=== PATIENT | male | born 1950 | race Caucasian/White ===

== ENCOUNTER 2020-03-13 08:42 | Outpatient (CLI) | payer MEDICARE, SELFPAY ==
[2020-03-13 09:25] LABS: Creatinine Urine 117.73 mg/dL (40-278); MALB Creatinine Ratio 16.5 mg/g (0-30); Microalbumin Urine Random 19.5 mg/L
[2020-03-13 09:26] LABS: Hemoglobin A1C 7.2 % (<5.7)
[2020-03-13 09:48] LABS: Alanine Aminotransferase 30 U/L (16-63); Albumin Level 4.1 g/dL (3.4-5.0); Alkaline Phosphatase 38 U/L (46-116); Anion Gap 9 mmol/L (8-16); Aspartate Amino Transferase 12 U/L (15-37); Bilirubin,Total 0.3 mg/dL (0.00-1.00); Blood Urea Nitrogen 17 mg/dL (7-18); Carbon Dioxide 26 mmol/L (21-32); Chloride 102 mmol/L (98-108); Cholesterol 166 mg/dL (0-200); Estimated Glomerular Filt Rate > 60; Glucose 144 mg/dL (70-99); HDL Direct 45 mg/dL (40-60); LDL Cholesterol Calculated 74 mg/dL (<130); Osmolality Calculated 288 mOsm/kg (285-295); Potassium 4.5 mmol/L (3.5-5.1); Sodium 137 mmol/L (136-145); Total Protein 7.3 g/dL (6.4-8.2); Triglycerides 233 mg/dL (0-150)
[2020-03-17 18:07] LABS: PSA, Free 0.76 ng/mL; PSA, Total 3.2 ng/mL (<=4.0); Percent Free Prostate Spec Ag 24 % (>25)
== END 2020-03-13 08:43 | disposition home or self-care (01) ==
PROVIDERS: PCP Family Medicine; Visit Provider Family Medicine
DX: E11.9 Type 2 diabetes mellitus without complications (principal); Z80.42 Family history of malignant neoplasm of prostate
CPT/HCPCS: 36415; 80053; 80061; 82043; 83036; 84153; 84154; G0103

== ENCOUNTER 2020-05-05 08:27 | Outpatient (CLI) | payer SELFPAY | END 2020-05-05 08:28 | disposition home or self-care (01) | PROVIDERS: PCP Family Medicine; Visit Provider Nurse Practitioner Family | DX: E11.9 Type 2 diabetes mellitus without complications (principal) | CPT/HCPCS: 99199 ==

== ENCOUNTER 2020-07-14 10:38 | Outpatient (CLI) | payer MEDICARE, SELFPAY ==
[2020-07-14 11:09] LABS: Hemoglobin A1C 6.4 % (<5.7)
== END 2020-07-14 10:39 | disposition home or self-care (01) ==
LOC: CHSLAB 10:39
PROVIDERS: PCP Family Medicine; Visit Provider Family Medicine
DX: E11.9 Type 2 diabetes mellitus without complications (principal)
CPT/HCPCS: 36415; 83036

== ENCOUNTER 2021-05-11 10:25 | Outpatient (CLI) | payer MEDICARE, OTHER, SELFPAY ==
[2021-05-11 10:55] LABS: Creatinine Urine 44.88 mg/dL (40-278); MALB Creatinine Ratio 28.9 mg/g (0-30); Microalbumin Urine Random < 13.0 mg/L
[2021-05-11 10:59] LABS: Hemoglobin A1C 7.1 % (<5.7)
[2021-05-11 11:19] LABS: Alanine Aminotransferase 29 U/L (16-63); Alkaline Phosphatase 40 U/L (46-116); Anion Gap 9 mmol/L (8-16); Aspartate Amino Transferase 14 U/L (15-37); Bilirubin,Total 0.3 mg/dL (0.00-1.00); Blood Urea Nitrogen 18 mg/dL (7-18); Carbon Dioxide 28 mmol/L (21-32); Chloride 99 mmol/L (98-108); Cholesterol 161 mg/dL (0-200); Estimated Glomerular Filt Rate > 60; Glucose 206 mg/dL (70-99); HDL Direct 45 mg/dL (40-60); LDL Cholesterol Calculated 79 mg/dL (<130); Osmolality Calculated 289 mOsm/kg (285-295); Potassium 4.4 mmol/L (3.5-5.1); Sodium 136 mmol/L (136-145); Total Protein 7.2 g/dL (6.4-8.2); Triglycerides 185 mg/dL (0-150)
[2021-05-11 11:22] LABS: Hematocrit 43.8 % (37.0-46.0); Hemoglobin 14.3 g/dL (12.4-15.3); Mean Corpuscular HGB Conc 32.6 g/dL (32.0-36.0); Mean Corpuscular Hemoglobin 28.5 pg (27.0-31.0); Mean Corpuscular Volume 87.4 fL (78.0-102.0); Mean Platelet Volume 9.6 fl (8.7-11.0); Platelet Count Result 205 K/mm3 (150-420); Red Blood Count 5.01 M/mm3 (4.70-6.10); White Blood Count 4.7 K/mm3 (4.8-10.8)
[2021-05-14 20:22] LABS: PSA, Free 0.65 ng/mL; PSA, Total 3.3 ng/mL (<=4.0); Percent Free Prostate Spec Ag 20 % (>25)
== END 2021-05-11 10:26 | disposition home or self-care (01) ==
LOC: CHSLAB 10:29
PROVIDERS: PCP Family Medicine; Visit Provider Nurse Practitioner Family
DX: E11.9 Type 2 diabetes mellitus without complications (principal); I10 Essential (primary) hypertension; E78.5 Hyperlipidemia, unspecified; Z80.42 Family history of malignant neoplasm of prostate; R97.20 Elevated prostate specific antigen [PSA]
CPT/HCPCS: 36415; 80053; 80061; 82043; 83036; 84153; 84154; 85027

== ENCOUNTER 2021-05-19 09:53 | Outpatient (CLI) | payer MEDICARE, OTHER, SELFPAY ==
--- NOTE | ~2021-05-19 | DEXA_ITS ---
Bone Density Report Name: RICKY DAS Age: 71 Sex: Male Ethnicity: White Date of : 1950 Indication: height loss; prior fracture; Referring Provider: Ekaterina Faulkner Study: Bone densitometry was performed. Exam Date: May 19, 2021 Accession number: [id number] Bone Density: Region BMD T-score Z-score Classification AP Spine(L1, L2, L4) 1.021 -0.6 0.3 Normal Femoral Neck (Left) 0.727 -1.5 -0.3 Osteopenia Total Hip (Left) 0.700 -2.2 -1.6 Osteopenia Femoral Neck (Right) 0.553 -2.8 -1.6 Osteoporosis Total Hip (Right) 0.654 -2.5 -1.9 Osteoporosis Femoral Neck Mean 0.640 -2.1 -1.0 Osteopenia Total Hip Mean 0.677 -2.4 -1.7 Osteopenia World Health Organization criteria for BMD impression classify patients as: Normal (T-score at or above -1.0), Osteopenia (T-score between -1.0 and -2.5), or Osteoporosis (T-score at or below -2.5). 10-year Fracture Risk: FRAX not reported because: Some T-score for Spine Total or Hip Total or Femoral Neck at or below -2.5 Clinical Information Provided by Patient: Has had a low trauma fracture Has used the following medications: Vitamin D, Calcium Patient maximum height was 72 No regular weight bearing exercise Drinks caffeinated beverages Impression: The patient has established osteoporosis, based on the Right Femoral Neck T-score and the existence of a prior fracture. The patient has risk factors, including: previous fracture. Discussion: HIGH RISK OF FRACTURE. BONE DENSITY IS UNDESIRABLY LOW AT ONE OR MORE SKELETAL SITES, CONSISTENT WITH OSTEOPOROSIS. This patient's lowest T-score, in a patient who has previously fractured, meets the World Health Organization's (WHO) criteria for severe osteoporosis. In untreated patients, the risk of osteoporotic fracture increases approximately two-fold for each 1.0 SD decrease in T-score. Low bone density is not the only risk factor for fracture; also consider factors such as patient's age, frailty or poor health, risk of falling, risk of injury, previous osteoporotic fracture, family history of osteoporosis, cigarette smoking, low body weight, etc. Not everyone with low bone mineral density has osteoporosis; osteomalacia and other metabolic bone disorders should also be considered. Patients who have osteoporosis should be evaluated for specific diseases and conditions (secondary causes) that may cause or contribute to bone loss. The National Osteoporosis Foundation (NOF) recommends pharmacologic intervention for men with BMD at this level (a T-score of -2.5 or below). The patient should follow a healthful lifestyle (good nutrition with adequate calcium and vitamin D, and appropriate weight-bearing exercise). Follow-Up: Consider repeating this study in 2 years to reassess this patient's status, or sooner i
== END 2021-05-19 09:54 | disposition home or self-care (01) ==
LOC: CHSIMG 09:55
PROVIDERS: PCP Family Medicine; Visit Provider Nurse Practitioner Family
DX: M81.0 Age-related osteoporosis without current pathological fracture (principal)
CPT/HCPCS: 77080

== ENCOUNTER 2021-07-07 10:23 | Outpatient (CLI) | payer MEDICARE, OTHER, SELFPAY ==
--- NOTE | ~2021-07-07 | CT_ITS ---
EXAMINATION: CT brain & sinus wo con EXAM DATE: 07/07/2021 11:32 INDICATION: Chronic Sinusitis,Drainage TECHNIQUE: Spiral CT of the head obtained without contrast. Reformatted coronal, sagittal images rev iewed. Spiral CT of the sinuses was acquired in the axial plane. Coronal and sagittal reformatted im ages were also reviewed. The dose-length product (DLP) for this examination was 681.00 mGy-cm. The exposure was tailored according to patient size, and iterative reconstruction (ASIR) was used as harshad tional dose reduction technique. Comparison is made to prior examination from 09/18/2017. FINDINGS: SINUS CT: The sinuses are normally developed. Mild bilateral ethmoid mucoperiosteal thickening. No sinus air-fluid levels. The ostiomeatal units are patent. There is no sinus wall thickening. T here is mild rightward nasal septal deviation. The mastoid air cells and middle ears are well aerate d. External auditory canals are patent. Soft tissue is unremarkable. HEAD CT: Mild cerebral atrophy. There is no acute intraparenchymal hemorrhage. No evidence of intrap arenchymal brain mass lesion. No evidence of acute infarction. There is no mass effect or midline sh ift. There is no obstructive hydrocephalus suspected. There are no extra-axial collections. There a re no calvarial acute fractures. IMPRESSION: 1. Mild ethmoid mucoperiosteal thickening. No air-fluid levels. 2. Mild cerebral atrophy Reviewed, dictated and finalized at location A. ITAL CARRIER
== END 2021-07-07 10:24 | disposition home or self-care (01) ==
LOC: CHSIMG 10:23
PROVIDERS: PCP Family Medicine; Visit Provider Family Medicine
DX: J32.9 Chronic sinusitis, unspecified (principal)
CPT/HCPCS: 70450; 70486

== ENCOUNTER 2021-07-14 09:47 | Outpatient (CLI) | payer MEDICARE, OTHER, SELFPAY ==
[2021-07-14] MEDS: ZOLEDRONIC ACID 5 MG/100 ML 100 ML 300 MG IVPB (10:00)
[2021-07-14 10:07] VITALS: BP 129/84; PULSE 56; RESP 18; TEMP 36.5
[2021-07-14 10:08] VITALS: BMI 39.1
--- NOTE | 2021-07-14 10:12 | PC.NURSE ---
Patient here for IV Reclast yearly infusion. Education on medication given. No concerns voiced. IV Reclast administered. SEE MAR. Tolerated well. Safe exit of hospital. Will return next year after receiving a new order will call.
== END 2021-07-14 09:48 | disposition home or self-care (01) ==
PROVIDERS: PCP Family Medicine; Visit Provider Family Medicine
DX: M81.0 Age-related osteoporosis without current pathological fracture (principal)
CPT/HCPCS: 96365; 96374; J3489

== ENCOUNTER 2022-08-11 09:00 | Outpatient (CLI) | payer MEDICARE, OTHER, SELFPAY ==
[2022-08-11 09:34] LABS: Hemoglobin A1C 6.1 % (<5.7)
[2022-08-11 09:56] LABS: Alanine Aminotransferase 27 U/L (16-63); Albumin Level 4.1 g/dL (3.4-5.0); Alkaline Phosphatase 31 U/L (46-116); Anion Gap 7 mmol/L (8-16); Aspartate Amino Transferase 17 U/L (15-37); Bilirubin,Total 0.3 mg/dL (0.00-1.00); Blood Urea Nitrogen 14 mg/dL (7-18); Calcium 9.4 mg/dL (8.5-10.1); Carbon Dioxide 28 mmol/L (21-32); Chloride 102 mmol/L (98-108); Cholesterol 134 mg/dL (0-200); Estimated Glomerular Filt Rate > 60; Glucose 105 mg/dL (70-99); HDL Direct 50 mg/dL (40-60); LDL Cholesterol Calculated 54 mg/dL (<130); Osmolality Calculated 284 mOsm/kg (285-295); Potassium 4.5 mmol/L (3.5-5.1); Prostate Specific Antigen 4.7 ng/mL (< OR = 4.0); Sodium 137 mmol/L (136-145); Total Protein 7.2 g/dL (6.4-8.2); Triglycerides 149 mg/dL (0-150)
[2022-08-11 10:10] LABS: Creatinine Urine < 13.00 mg/dL (40-278); Microalbumin Urine Random < 13.0 mg/L
== END 2022-08-11 09:01 | disposition home or self-care (01) ==
LOC: CHSLAB 09:02
PROVIDERS: PCP Family Medicine; Visit Provider Family Medicine
DX: Z12.5 Encounter for screening for malignant neoplasm of prostate (principal); E11.9 Type 2 diabetes mellitus without complications
CPT/HCPCS: 36415; 80053; 80061; 82043; 83036; 84153; G0103

== ENCOUNTER 2022-09-23 08:50 | Outpatient (CLI) | payer MEDICARE, OTHER, SELFPAY ==
[2022-09-23 10:03] LABS: Prostate Specific Antigen 5.9 ng/mL (< OR = 4.0)
== END 2022-09-23 08:51 | disposition home or self-care (01) ==
LOC: CHSLAB 08:53
PROVIDERS: PCP Family Medicine; Visit Provider Family Medicine
DX: R97.20 Elevated prostate specific antigen [PSA] (principal)
CPT/HCPCS: 36415; 84153

== ENCOUNTER 2022-10-18 10:52 | Outpatient (CLI) | payer MEDICARE, OTHER, SELFPAY ==
--- NOTE | ~2022-10-18 | XR_ITS ---
XR lumbar spine 2-3V 10/18/2022 11:14 Indication: Acute low back pain Procedure: 3 views lumbar spine Comparison: No prior studies for comparison. Findings: Vertebral body heights are maintained. There is disc narrowing at L3-4, L4-5 and L5-S1. Kassidy tebral body heights are maintained. There is moderate lower lumbar there is atherosclerosis. Facet hy pertrophy. No acute fracture or traumatic malalignment. Impression: 1: Severe lumbar spondylosis. Reviewed, dictated and finalized at location L. Impression: 1: Severe lumbar spondylosis.
== END 2022-10-18 10:53 | disposition home or self-care (01) ==
LOC: CHSIMG 10:55
PROVIDERS: PCP Family Medicine; Visit Provider Family Medicine
DX: M54.40 Lumbago with sciatica, unspecified side (principal); M47.816 Spondylosis without myelopathy or radiculopathy, lumbar region
CPT/HCPCS: 72100

== ENCOUNTER 2022-10-23 11:50 | Emergency (ER) | payer MEDICARE, OTHER, SELFPAY ==
--- NOTE | ~2022-10-23 | XR_ITS ---
XR chest 1V portable DATE: 10/23/2022 12:33 INDICATION: Near syncope. Vomiting. TECHNIQUE: Portable AP chest on 10/23/2022 at 1230 hours COMPARISON: 01/15/2018 two-view chest FINDINGS: Heart size appears normal. No hilar or mediastinal enlargement. Mild atelectasis in the lower lung zones. No pleural effusion or pulmonary vascular congestion or pne umothorax is detected. IMPRESSION: Mild atelectasis in the lower lung zones Reviewed, dictated and finalized at location A.
[2022-10-23 11:56] VITALS: BP 156/128; PULSE 79; RESP 20; TEMP 36.5; O2SAT 99
--- NOTE | 2022-10-23 12:12 | ECG_ITS ---
Measurements Intervals [place] Rate: 77 P: 40 W[place]: 205 QRS: -17 QRSD: 94 T: 21 QT: 376 QTc: 427 Interpretive Statements SINUS RHYTHM NORMAL ECG NO PREVIOUS ECG AVAILABLE FOR COMPARISON Electronically Signed On 10-24-2022 10:43:46 CDT by Job Snider M.D.
[2022-10-23 12:18] VITALS: BP 115/95; PULSE 80; RESP 22; O2SAT 100
[2022-10-23] MEDS: LORazepam INJ (*CRX) 2 MG/ML VIAL 1 MG IV PUSH (12:20)
[2022-10-23 12:21] VITALS: PULSE 81
--- NOTE | 2022-10-23 12:29 | ED.GENADULT ---
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 He felt dizzy felt palpitations were little fast he said he had a sensation of motion vertigo the lasted for couple minutes. EMS stated he was hyperventilating and tearful when they got to his side in the bathroom. And when the EMS distracted him with cis talked about fire fighting patient calmed down. Blood pressure at the scene was 126/76 first-degree AV block at a rate 84 unremarkable 12 lead respirations were 18 O2 sat on room air was 98% denies any pain his blood sugar was 94 he had 1 emesis he was given 4 of Zofran IV. Patient had just been outside in the heat and came in the house to the bathroom he felt like he had to have a bowel movement as he was having some cramping lower abdominal pain. Denies any problems walking talking or seeing or new problems hearing rash or itching lumps or bumps or swelling bleeding or bruising. Denies any problems eating or drinking or voiding. Denies any cough sore shortness of breath sore throat runny nose or fever he has not been sick recently and denies any pain. EMS stated he had awoke not feeling well today but when asked patient said he woke up fine. Most recently he has had some right lower extremity pain from sciatica and is taking OxyContin this. He has had 2 strokes has problems with his memory which his primary care provider thinks is secondary to old age and he has tremor when he gets nervous or does not feel well. He has a history of anxiety and depression and diabetes. History of hypertension heart disease lung disease kidney liver disease anemia thyroid problems. thought he was having a panic attack like he has every 2 weeks. Past surgeries appendectomy bilateral knee surgeries allergies Flexeril atorvastatin Related Data Home Medications Medication Instructions Recorded Confirmed aspirin 81 mg tablet,delayed 81 mg PO DAILY 05/14/19 08/26/22 release (Adult Low Dose Aspirin) calcium citrate 315 mg-vitamin D3 2 tablet PO DAILY 05/06/21 08/26/22 5 mcg (200 unit) tablet multivitamin (Multiple Vitamins 1 tablet PO DAILY 05/06/21 08/26/22 tablet) Allergies Allergy/AdvReac Type Severity Reaction Status Date / Time cyclobenzaprine Allergy Unknown Unknown Verified 10/18/22 08:00 atorvastatin AdvReac Mild Joint Pain Verified 10/18/22 08:00 bupropion AdvReac Mild tremors Verified 10/18/22 08:00 Review of Systems Review of Systems: All systems reviewed & are unremarkable except as noted in HPI and below PMFSH Past Medical History Medical History Age related osteoporosis DM2 (diabetes mellitus, type 2) Elevated blood pressure reading without diagnosis of hypertension MICHEAL (generalized anxiety disorder) GERD (gastroesophageal reflux disease) History of TIA (transient ischemic attack) Hyperlipidemia NERI (obstructive sleep apnea) Uses CPAP Overweight Surgical History Surgical History H/O vein stripping History of facial surgery History of knee replacement Right & Left Hx of appendectomy Family History Family History Father Malignant neoplasm of prostate Family history of malignant neoplasm of brain Mother Cancer Social History Social History Smoking status: Current some day smoker (2 cigars a week) Tobacco type: cigars Alcohol intake: former Substance use: never Substance use type: does not use Living arrangements: with family Additional living arrange
[2022-10-23 12:46] VITALS: BP 111/96; PULSE 74; RESP 20; O2SAT 95
[2022-10-23 13:10] LABS: Hematocrit 39.7 % (37.0-46.0); Hemoglobin 13.3 g/dL (12.4-15.3); Mean Corpuscular HGB Conc 33.5 g/dL (32.0-36.0); Mean Corpuscular Hemoglobin 29.1 pg (27.0-31.0); Mean Corpuscular Volume 86.9 fL (78.0-102.0); Mean Platelet Volume 9.6 fl (8.7-11.0); Platelet Count Result 191 K/mm3 (150-420); Red Blood Count 4.57 M/mm3 (4.70-6.10); Red Cell Distribution Width 11.9 % (11.6-14.4); White Blood Count 8.1 K/mm3 (4.8-10.8)
[2022-10-23 13:25] LABS: INR 0.9; Partial Thromboplastin Time 25.2 SEC (23.90-30.70); Prothrombin Time 10.3 Seconds (9.50-12.10)
[2022-10-23 13:31] LABS: Alanine Aminotransferase 19 U/L (16-63); Albumin Level 3.6 g/dL (3.4-5.0); Alkaline Phosphatase 32 U/L (46-116); Anion Gap 10 mmol/L (8-16); Aspartate Amino Transferase 14 U/L (15-37); Bilirubin,Total 0.4 mg/dL (0.00-1.00); Blood Urea Nitrogen 20 mg/dL (7-18); Calcium 9.2 mg/dL (8.5-10.1); Carbon Dioxide 25 mmol/L (21-32); Chloride 102 mmol/L (98-108); Estimated CRCL calculation 85 ml/min; Estimated Glomerular Filt Rate > 60; Glucose 101 mg/dL (70-99); Lactic Acid Reflex 2.5 mmol/L (0.4-2.0); Magnesium 1.6 mg/dL (1.8-2.4); Osmolality Calculated 286 mOsm/kg (285-295); Potassium 4.3 mmol/L (3.5-5.1); Sodium 137 mmol/L (136-145); Total Protein 6.9 g/dL (6.4-8.2); Troponin I 8.5 ng/L (0.00-60.4)
[2022-10-23 15:00] LABS: Appearance Urine Clear (Clear); Bilirubin Urine Negative (Negative); Blood Urine Negative (Negative); Color Urine Yellow (Yellow); Glucose Urine UA Negative (Negative); Ketones Urine Negative (Negative); Leukocyte Esterase Ur Negative LEU/UL (Negative); Nitrate Urine Negative (Negative); Protein Urine Negative (Negative); Urobilinogen Urine 0.2 mg/dL (0.2-1.0)
[2022-10-23 15:02] LABS: Add Urine Microscopic? NO
[2022-10-23 15:54] VITALS: BP 111/96; PULSE 88; RESP 20; TEMP 36.3
[2022-10-23] MEDS: MAGNESIUM OXIDE 400 MG TABLET PO (15:59)
[2022-10-23 16:07] LABS: Reflex Lactic Acid Yes or No Add Lactic
[2022-10-23 16:43] VITALS: BP 113/90; PULSE 86; RESP 20; O2SAT 96
[2022-10-23 16:55] LABS: Lactic Acid 1.2 mmol/L (0.4-2.0)
== END 2022-10-23 16:45 | disposition home or self-care (01) ==
PROVIDERS: Emergency Provider Emergency Medicine; PCP Family Medicine
DX: E83.42 Hypomagnesemia (principal); F41.0 Panic disorder [episodic paroxysmal anxiety]; F41.9 Anxiety disorder, unspecified; F32.A Depression, unspecified; E11.9 Type 2 diabetes mellitus without complications; E78.5 Hyperlipidemia, unspecified; F17.290 Nicotine dependence, other tobacco product, uncomplicated; Z86.73 Personal history of transient ischemic attack (TIA), and cerebral infarction without residual deficits; Z79.82 Long term (current) use of aspirin
CPT/HCPCS: 36415; 71045; 80053; 81003; 83605; 83735; 84484; 85027; 85610; 85730; 93005; 96374; 99284; A9270; J2060

== ENCOUNTER 2022-10-24 08:32 | Outpatient (RCR) | payer MEDICARE, OTHER, SELFPAY ==
--- NOTE | 2022-10-24 09:26 | OPREHPOC ---
Outpatient Therapy Plan of Care This is a Multidisciplinary Plan of Care that may contain components documented by all disciplines (PT, OT, and ST.) PT Problem 1 PT Problem #1 Knowledge Deficit PT Goal 1 Goal Patient to demonstrate independence with HEP Target Visit 12 PT Problem 2 PT Problem #2 Pain PT Goal 1 Goal Patient to demonstrate highest pain of 2/10 with house hold tasks Target Visit 12 PT Problem 3 PT Problem #3 Impaired Flexibility PT Goal 1 Goal Patient to demonstrate B HS flexibility to 20 deg to improve ability to stand for prolonged periods PT Problem 4 PT Problem #4 Impaired Strength PT Goal 1 Goal Patient to demonstrate 5/5 strength of B LE in order to return to house hold chores at PLOF Target Visit 12
--- NOTE | 2022-10-24 09:26 | PTOPEVAL1 ---
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 He denies back pain currently but states pain goes down posterior leg. He reports years ago he broke his R ischium. He reports pain is worse with standing but comes and goes as well. Ice and heat help as well as laying his leg flat. He is retired but continues to do house and yard work. Reported Pain Level Pain Score 3,0: Self Report Assessment PT Clinical Summary Patient is a 72 year old male who presents to PT with lumbar radiculopathy to the R LE. He demonstrates impaired posture, decreased B hip strength and decreased B LE flexibility limting his ability to stand for long periods of time for house hold tasks, carry and lift. He would benefit from skilled PT to address impairments and return to PLOF. Plan of Care Interventions Electrical Stimulation,Gait Training,Hot Pack/Cold Pack,Manual Therapy,Mechanical Traction,Neuro Re- education,Therapeutic Activities,Therapeutic Exercise PT Services Indicated Yes Treatment Frequency and 2x weekly for 12 visits Duration These treatments will address the objective and functional deficits as defined above. The patient will be advanced safely and appropriately in order for the patient to progress towards his/her prior level of function. Additional exercises will be introduced and as well as a comprehensive home exercise program upon discharge, if needed, ?to ensure carryover of functional gains achieved in the clinic. This treatment plan has been reviewed and agreement upon by the patient.
--- NOTE | 2022-11-30 11:18 | PTOPDC ---
Assessment and note entered by JT File, PT Evaluation Information Assessment Status Discharge Diagnosis low back pain with radiating pain to R LE Onset 10/18/22 Subjective Information patient reports he feels great today. he reports he has no more back pain, and no more pain down the R LE. he reports he is ready to DC therapy today. Reported Pain Level Pain Score 0,0: Self Report Assessment PT Clinical Summary mr. [email or web address] presents to skilled PT services for his 10th skilled therapy visit today. as of this date, he has met all goals for skilled PT, and is managing symptoms and exercises independent at home. he will DC skilled PT today and continue with HEP independent at home. Plan of Care PT Services Indicated Yes
--- NOTE | 2022-11-30 13:40 | OPREHPOC ---
Outpatient Therapy Plan of Care This is a Multidisciplinary Plan of Care that may contain components documented by all disciplines (PT, OT, and ST.) PT Problem 1 PT Problem #1 Knowledge Deficit PT Goal 1 Goal Patient to demonstrate independence with HEP Target Visit 12 Progress Met PT Problem 2 PT Problem #2 Pain PT Goal 1 Goal Patient to demonstrate highest pain of 2/10 with house hold tasks Target Visit 12 Progress Met PT Problem 3 PT Problem #3 Impaired Flexibility PT Goal 1 Goal Patient to demonstrate B HS flexibility to 20 deg to improve ability to stand for prolonged periods Progress Partially Met Comment met for the R LE PT Problem 4 PT Problem #4 Impaired Strength PT Goal 1 Goal Patient to demonstrate 5/5 strength of B LE in order to return to house hold chores at PLOF Target Visit 12 Progress Met
== END 2022-11-30 11:27 | disposition home or self-care (01) ==
LOC: CHSPT 08:32
PROVIDERS: PCP Family Medicine; Visit Provider Family Medicine
DX: M54.30 Sciatica, unspecified side (principal)
CPT/HCPCS: 97014; 97110; 97140; 97161; G0283

== ENCOUNTER 2022-12-19 07:55 | Outpatient (CLI) | payer MEDICARE, SELFPAY ==
[2022-12-19 08:45] LABS: Basophils Absolute Auto 0.03 K/mm3 (0.00-0.10); Basophils Percent Auto 0.6 % (0.0-1.0); Eosinophils Absolute Auto 0.14 K/mm3 (0.02-0.50); Eosinophils Percent Auto 2.9 % (1.0-6.0); Hematocrit 39.8 % (37.0-46.0); Hemoglobin 13.2 g/dL (12.4-15.3); Immature Granulocyte Absolute 0.01 K/mm3 (0.00-0.00); Immature Granulocyte Percent A 0.2 % (0.0-0.0); Lymphocytes Absolute Auto 1.48 K/mm3 (1.10-4.50); Lymphocytes Percent Auto 30.3 % (18.0-42.0); Mean Corpuscular HGB Conc 33.2 g/dL (32.0-36.0); Mean Corpuscular Hemoglobin 29.5 pg (27.0-31.0); Mean Corpuscular Volume 88.8 fL (78.0-102.0); Mean Platelet Volume 9.8 fl (8.7-11.0); Monocytes Absolute Auto 0.31 K/mm3 (0.10-0.90); Monocytes Percent Auto 6.4 % (2.0-11.0); Neutrophils Absolute Auto 2.9 K/mm3 (1.7-7.2); Neutrophils Percent Auto 59.6 % (50.0-70.0); Platelet Count Result 218 K/mm3 (150-420); Red Blood Count 4.48 M/mm3 (4.70-6.10); Red Cell Distribution Width 12.1 % (11.6-14.4); White Blood Count 4.9 K/mm3 (4.8-10.8)
[2022-12-19 09:13] LABS: Alanine Aminotransferase 16 U/L (16-63); Albumin Level 3.7 g/dL (3.4-5.0); Alkaline Phosphatase 29 U/L (46-116); Anion Gap 7 mmol/L (8-16); Aspartate Amino Transferase 15 U/L (15-37); Bilirubin,Total 0.4 mg/dL (0.00-1.00); Blood Urea Nitrogen 19 mg/dL (7-18); Carbon Dioxide 26 mmol/L (21-32); Chloride 104 mmol/L (98-108); Estimated Glomerular Filt Rate > 60; Glucose 105 mg/dL (70-99); Magnesium 1.9 mg/dL (1.8-2.4); Osmolality Calculated 286 mOsm/kg (285-295); Potassium 4.8 mmol/L (3.5-5.1); Sodium 137 mmol/L (136-145); Total Protein 7.1 g/dL (6.4-8.2)
== END 2022-12-19 07:56 | disposition home or self-care (01) ==
LOC: CHSLAB 07:57
PROVIDERS: PCP Family Medicine; Visit Provider Family Medicine
DX: R03.0 Elevated blood-pressure reading, without diagnosis of hypertension (principal)
CPT/HCPCS: 36415; 80053; 83735; 85025

== ENCOUNTER 2023-05-03 09:17 | Outpatient (CLI) | payer MEDICARE, SELFPAY ==
[2023-05-03 10:39] LABS: Prostate Specific Antigen 6.6 ng/mL (< OR = 4.0)
== END 2023-05-03 09:18 | disposition home or self-care (01) ==
LOC: CHSLAB 09:19
PROVIDERS: PCP Family Medicine; Visit Provider Urology
DX: C61 Malignant neoplasm of prostate (principal)
CPT/HCPCS: 36415; 84153

== ENCOUNTER 2023-08-01 08:53 | Outpatient (CLI) | payer MEDICARE, SELFPAY ==
[2023-08-01 10:15] LABS: Prostate Specific Antigen 6.6 ng/mL (< OR = 4.0)
== END 2023-08-01 08:54 | disposition home or self-care (01) ==
LOC: CHSLAB 08:55
PROVIDERS: PCP Family Medicine; Visit Provider Urology
DX: C61 Malignant neoplasm of prostate (principal)
CPT/HCPCS: 36415; 84153

== ENCOUNTER 2023-08-29 07:56 | Outpatient (CLI) | payer MEDICARE, OTHER, SELFPAY ==
--- NOTE | ~2023-08-29 | DEXA_ITS ---
? Bone Density Report? Name:? RICKY DAS Patient ID:??? [id number] Age:? 73 Sex:? Male Ethnicity:? White Date of : 1950 Indication: screening for osteoporosis; height loss; prior fracture; Referring Provider: NICKY WILSON Study: Bone densitometry was performed. Exam Date: August 29, 2023 Accession number: [id number] Bone Density: Region? BMD??? T-score? Z-score?? Classification AP Spine(L1, L2, L4)? 0.977?? -1.0? -0.1? Normal Femoral Neck (Left)? 0.686?? -1.8? -0.6? Osteopenia Total Hip (Left)? 0.697?? -2.2? -1.5? Osteopenia Femoral Neck (Right)? 0.601?? -2.4? -1.2? Osteopenia Total Hip (Right)? 0.678?? -2.4? -1.7? Osteopenia Femoral Neck Mean? 0.644?? -2.1? -0.9? Osteopenia Total Hip Mean? 0.687?? -2.3? -1.6? Osteopenia World Health Organization criteria for BMD impression classify patients as: Normal (T-score at or above -1.0), Osteopenia (T-score between -1.0 and -2.5), or Osteoporosis (T-score at or below -2.5). 10-year Fracture Risk(1): Major Osteoporotic Fracture? 13% Hip Fracture? 3.9% Reported Risk Factors: [place] (), Neck BMD=0.601, BMI=39.5, previous fracture Input outside FRAX? limits. Adjusted to:Sziswh=930 kg (1) FRAX? Version 3.08. Fracture probability calculated for an untreated patient. Fracture probability may be lower if the patient has received treatment. Clinical Information Provided by Patient: Has had a low trauma fracture Has used the following medications: Vitamin D, Calcium Patient maximum height was 72 No regular weight bearing exercise Drinks caffeinated beverages Impression: The patient has low bone mass, based on the Right Total Hip T-score. The patient has risk factors, including: previous fracture. Discussion: BONE DENSITY IS LOW AT ONE OR MORE SKELETAL SITES. This patient's lowest T-score is low at one or more skeletal sites.? It meets the World Health Organization's (WHO) criteria for ?low bone mass?? (T-score between -1.0 and -2.5).? The patient's 10-year risk of fracture as calculated by FRAX is less than the threshold where pharmacological therapy is recommended by the National Osteoporosis Foundation (NOF).? However, all treatment decisions require clinical judgment and consideration of individual patient factors, including patient preferences, comorbidities, previous drug use, risk factors not captured in the FRAX model (e.g., frailty, falls, vitamin D deficiency, increased bone turnover, interval significant decline in bone density) and possible under or overestimation of fracture risk by FRAX. The patient should follow a healthful lifestyle (good nutrition with adequate calcium and vitamin D, and appropriate weight-bearing exercise). Follow-Up: Consider repeating this study in 2 to 3 years to reassess this patient's status, or sooner if there is some new clinical indication. Reported by: Dr. Emmanuel Gonzalez on 08/29/19
== END 2023-08-29 07:57 | disposition home or self-care (01) ==
LOC: CHSIMG 07:57
PROVIDERS: PCP Nurse Practitioner Family; Visit Provider Nurse Practitioner Family
DX: M81.8 Other osteoporosis without current pathological fracture (principal); M85.89 Other specified disorders of bone density and structure, multiple sites
CPT/HCPCS: 77080

== ENCOUNTER 2023-09-30 14:30 | Emergency (ER) | payer MEDICARE, OTHER, SELFPAY ==
[2023-09-30 14:30] VITALS: BP 151/97; PULSE 81; RESP 16; TEMP 36.4; O2SAT 97
--- NOTE | 2023-09-30 14:46 | ED.GENADULT ---
HPI - General Adult General Chief complaint: Wound/Laceration Stated complaint: laceration to nose Source: patient Mode of arrival: ambulatory Limitations: no limitations History of Present Illness HPI narrative: 73-year-old male history smoking, hypertension, diabetes mellitus, dyslipidemia, GA D, TIA, NERI, BPH presented to the ER with -- 0.5 cm traumatic ulcer in his left nostril which she got while shaving. Profuse bleeding which the patient was not able to control. No other injuries noted. The wound was cauterized with silver nitrate stick following which the bleeding stopped Onset (ago): minute(s) ( 30 minutes ago) Location: face ( left nostril) Relieving factors: none Exacerbating factors: none Related Data Home Medications Medication Instructions Recorded Confirmed aspirin 81 mg tablet,delayed 81 mg PO DAILY 05/14/19 08/21/23 release (Adult Low Dose Aspirin) multivitamin (Multiple Vitamins 1 tablet PO DAILY 05/06/21 08/21/23 tablet) ipratropium bromide 21 mcg (0.03 2 spray intranasal BID 12/16/22 08/21/23 %) nasal spray Allergies Allergy/AdvReac Type Severity Reaction Status Date / Time cyclobenzaprine Allergy Unknown Unknown Verified 08/21/23 10:20 atorvastatin AdvReac Mild Joint Pain Verified 08/21/23 10:20 bupropion AdvReac Mild tremors Verified 08/21/23 10:20 Review of Systems Review of Systems: All systems reviewed & are unremarkable except as noted in HPI and below PMFSH Past Medical History Medical History Age related osteoporosis DM2 (diabetes mellitus, type 2) Elevated blood pressure reading without diagnosis of hypertension MICHEAL (generalized anxiety disorder) GERD (gastroesophageal reflux disease) History of TIA (transient ischemic attack) Hyperlipidemia NERI (obstructive sleep apnea) Inspire implanted device Overweight Surgical History Surgical History H/O vein stripping History of facial surgery History of knee replacement Right & Left Hx of appendectomy Family History Family History Father Malignant neoplasm of prostate Family history of malignant neoplasm of brain Mother Cancer Social History Social History Smoking status: Current some day smoker (2 cigars a week) Tobacco type: cigars Alcohol intake: former Substance use: never Substance use type: does not use Do You Feel Safe in your Home?: Yes Lack of Transportation: No Lack of Food: Never True Current Housing: I Have Housing Concerned About Future Housing: No Difficulty Paying Gas/Electric Bills: No Difficulty Paying for Meds: No Currently Unemployed: No Education: High School Diploma/GED Difficulty w/ Childcare or Family Care: No Living arrangements: with family Additional living arrangements comments: . Lives with . Occupation/Education: retired Additional occupation/education comments: Still an active member of [employer] Gender identity (if verbalized by the patient): Male Exam Narrative: blood pressure is 151/97 Const: General: healthy appearing and no acute distress Nutritional Appearance: obese Orientation/consciousness: patient oriented x3 Limitations: no limitations HENMT: Head: normal to inspection Ears: external ears normal Face/Nose/Sinus: Normal external nose present and Normal nares present ( 0.5 cm traumatic ulcer in the left nostril which is profusely bleeding.) Mouth: Yes Normal oral and palatal mucosa present Throat: posterior oropharynx normal Eyes: Conjunctivae: conjunctivae normal Pupils: Equal, round and reactive pupils present EOM: EOMs intact bilaterally Direct Ophthalmoscopy: no photophobia Neck: Neck: normal visual inspection, no lymphadenopathy and no meningeal signs Chest: Chest palpation & in
[2023-09-30] MEDS: SILVER NITRATE (*SP) STICK 1 EACH TOPICAL (14:53)
== END 2023-09-30 15:26 | disposition home or self-care (01) ==
PROVIDERS: Emergency Provider Internal Medicine Critical Care Medicine; PCP Family Medicine
DX: L98.491 Non-pressure chronic ulcer of skin of other sites limited to breakdown of skin (principal); E11.9 Type 2 diabetes mellitus without complications; E78.5 Hyperlipidemia, unspecified; G47.33 Obstructive sleep apnea (adult) (pediatric); M81.0 Age-related osteoporosis without current pathological fracture; F41.1 Generalized anxiety disorder; Z86.73 Personal history of transient ischemic attack (TIA), and cerebral infarction without residual deficits; Z79.82 Long term (current) use of aspirin; Z79.85 Long-term (current) use of injectable non-insulin antidiabetic drugs; Z79.84 Long term (current) use of oral hypoglycemic drugs; Z72.0 Tobacco use
CPT/HCPCS: 12001; 99283

== ENCOUNTER 2023-11-01 09:05 | Outpatient (CLI) | payer MEDICARE, OTHER, SELFPAY | END 2023-11-01 09:06 | disposition home or self-care (01) | LOC: CHSLAB 09:10 | PROVIDERS: PCP Family Medicine | DX: C61 Malignant neoplasm of prostate (principal) | CPT/HCPCS: 36415; 84153 ==

== ENCOUNTER 2024-02-02 10:47 | Outpatient (CLI) | payer MEDICARE, OTHER, SELFPAY ==
[2024-02-02 11:52] LABS: Prostate Specific Antigen 6.3 ng/mL (< OR = 4.0)
== END 2024-02-02 10:48 | disposition home or self-care (01) ==
PROVIDERS: PCP Family Medicine; Visit Provider Urology
DX: C61 Malignant neoplasm of prostate (principal)
CPT/HCPCS: 36415; 84153

== ENCOUNTER 2024-05-04 10:00 | Outpatient (CLI) | payer MEDICARE, OTHER, SELFPAY ==
[2024-05-04 11:15] LABS: Prostate Specific Antigen 5.8 ng/mL (< OR = 4.0)
== END 2024-05-04 10:01 | disposition home or self-care (01) ==
PROVIDERS: PCP Family Medicine; Visit Provider Urology
DX: C61 Malignant neoplasm of prostate (principal)
CPT/HCPCS: 36415; 84153

== ENCOUNTER 2024-07-31 09:44 | Outpatient (CLI) | payer MEDICARE, OTHER, SELFPAY ==
--- OUTSIDE RECORDS SUMMARY | 2024-07-31 10:39 | XMS_ITS | Continuity of Care Document ---
Author Organization [facility] Address [address] [place] [address] Phone Care Team Providers Care Language Specialist Name Role Phone Nahum Jade MD Unavailable Unavailable Allergies, Adverse Reactions, Alerts Substance Reaction Status [...] Providers Copied on Encounter Work/medical disability examination [facility] Orthopedic CourseAdvisor [facility], [address], [id number], [place] tel:[phone] Orthopedic CourseAdvisor [facility] JOINT PAIN-L/LEG Kalie Sidhu. [address] [facility] [facility], [address], [place], [place], [id number], [place]. tel:[phone] Family History Family Member Type Diagnosis Age At Onset No Information Payers Payer name Insurance type Covered constitution party ID Authoriza tion(s) MLS National WC [id number] Social History Type Description Quantity Date Captured [...]
--- OUTSIDE RECORDS SUMMARY | 2024-07-31 10:39 | XMS_ITS | CONTINUITY OF CARE DOCUMENT ---
Author Name faiza kendall Address Unknown Organization [facility] Address [address] [place] [address] [address] [place] [address] Phone [phone] Care Team Providers Care Senior Teradata Developer Name Role Phone Earl Antunez MD Unavailable RELL PARIKH MD Unavailable INSURANCE PROVIDERS Payer name Policy type / Coverage type [place] red libertarian ID [facility] [id number]
--- OUTSIDE RECORDS SUMMARY | 2024-07-31 10:39 | XMS_ITS | Encounter Summary ---
Author Organization [facility] Address [address] [place] [address] Care Team Providers Care Laborer Concrete Paving Name Role Phone Rufino Cordon DO Primary Care Provider [phone] Encounter Details Date Type Department Care Team (Late st Contact Info) Description 10/06/[address] [facility] [address] [place], [place] [address] , Generic Conversion, Social History Tobacco Use Types Packs/Day Years Used Date Smoking Tobacco: Never Assessed Sex and Gender Information Value Date Recorded Sex Assigned at Not on file Legal Sex Male 1:26 AM CDT Gender Identity Not on file Sexual Orientation Not on file documented as of this encounter Plan of Treatment Not on file documented as of this encounter Visit Diagnoses Not on filedocumented in this encounter Care Teams Laborer Concrete Paving Relationship Specialty Start Date End Date Rufino Cordon DO [address] [place] [address] PCP - General FAMILY PRACTICE 03/16/23 documented as of this encounter
--- OUTSIDE RECORDS SUMMARY | 2024-07-31 10:39 | XMS_ITS ---
Author Organization [facility] Address [address] [place], [place] [address] Care Team Providers Care Diesel Technology Instructor Name Role Phone IVELISSE GUERRERO Unavailable [phone] Rufino Cordon Unavailable Unavailable Allergies Allergen (clinical drug ingredient) Drug/Non Drug Allergy documented on EMR Reaction Allergy Type Onset Date Status cyclobenzaprine Cyclobenzaprine Unknown Drug Allergy 01/22 active REASON FOR VISIT Patient presents for at-risk foot care . The patient has painful toenails that are causing difficulty with ambulation and shoegear. The onset is gradual. The patient has diabetes mellitus Medications Medication SIG (Take, Route, Frequency, Duration) Notes Start Date End Date Status aspirin 81 MG Delayed Release Oral Tablet ORAL aspirin 81 MG Delayed Release Oral TabletOriginal Medicationaspirin 81 MG Delayed Release Oral Tablet *Reorder from [facility] for eRx and Interaction Alerts* 01/22/2018 Active Rosuvastatin Calcium 10 MG Oral Tablet ORAL rosuvastatin calcium 10 MG Oral TabletOriginal Medicationrosuvastatin calcium 10 MG Oral Tablet *Reorder from [facility] for eRx and Interaction Alerts* 01/22/2018 Active omeprazole 40 MG Delayed Release Oral Capsule ORAL omeprazole 40 MG Delayed Release Oral CapsuleOriginal Medicationomeprazole 40 MG Delayed Release Oral Capsule *Reorder from [facility] for eRx and Interaction Alerts* 01/22/2018 Active LORazepam 0.5 MG Oral Tablet ORAL lorazepam 0.5 MG Oral TabletOriginal Medicationlorazepam 0.5 MG Oral Tablet *Reorder from [facility] for eRx and Interaction Alerts* 01/22/2018 Active Vital Signs Weight 286 lbs 02/26/2024 Weight-kg 129.73 kg 02/26/2024 Height 72.00 in 02/26/2024 Height-cm 182.88 cm 02/26/2024 BMI 38.78 kg/m2 02/26/2024 Encounters Encounter Location Date Provider Diagnosis [facility] [address] [place] [id number] 02/26/2024 IVELISSE GUERRERO Tinea unguium B35.1 ; Pain in right toe(s) M79.674 ; Pain in left toe(s) M79.675 ; Atherosclerosis of [place] arteries of extremities with intermittent claudication, bilateral legs I70.213 and Type 2 diabetes mellitus with other circulatory complications E11.59 Assessments Encounter Date Diagnosis (ICD Code) Assessment Notes Treatment Notes Treatment Clinical Notes Section Notes 02/26/2024 Tinea unguium (ICD-10 - B35.1) NAIL DEBRIDEMENT: Nails 1-5 Bilateral were debrided extensively with nail nippers and emery board, reducing length and girth to pink healthy tissue with any subungual debris and necrotic tissue removed 02/26/2024 Pain in right toe(s) (ICD-10 - M79.674) 02/26/2024 Pain in left toe(s) (ICD-10 - M79.675) 02/26/2024 Atherosclerosis of chitina arteries of extremities with intermittent claudication, bilateral legs (ICD-10 - I70.213) 02/26/2024 Type 2 diabetes mellitus with other circulatory complications (ICD-10 - E11.59) Diabetic Foot Care: The patient was educated on diabetes and the lower extremity. The patient was instructed to check his feet daily to report any problems or signs of infection immediately. The patient was provided written information on Diabetic Foot Care as well as the Amputation Prevention Guide. Plan Of Treatment Treatment Notes Assessment Notes Tinea unguium NAIL DEBRIDEMENT: Na ils 1-5 Bilateral were debrided extensively with nail nippers and emery board, reducing length and girth to pink healthy tissue with any subungual debris and necrotic tissue removed Type 2 diabetes mellitus wit h other circulatory complications Diabetic Foot Care: The patient was educated on diabetes and the lower extremity. The patient was instructed to check his feet daily to report any problems or signs of infection immediately. The patient was provided written information on Diabetic Foot Care as well as the Amputation Prevention Guide. Next Appt Details Follow Up: 10 - 12 weeks, Re ason: At-Risk Foot care, sooner if problems develop. Provider Name:ROSARIO NOLASCO, 08/01/2024 08:10:00 AM, [address] [place] [address], [phone], Progress Notes * NICOLARICKY Oneill WDOB:1950 (73 yo M)Acc No.[id number]:02/26/2024 Patient: RICKY NICHOLAS W Provider: Jayesh Guerrero DPM :1950 A ge:73 Y S ex:Male Date:02/26/2024 Address:[address] [place] [address] Subjective: * Chief Complaints: * 1 . Patient presents for at-risk foot care . The patient has painful toenails that are causing difficulty with ambulation and shoegear. The onset is gradual. The patient has diabetes mellitus. * HPI: H PI: General care P maria guadalupe presents to the office for diabetic foot care. Patient states that their nails are thickened, elongated and painful. Patient states that it is aggravated by shoe gear. Onset is gradual. , Patient denies taking prescription blood thinners but does take a daily aspirin. , Date last seen by Dr. Cordon was January 2024. , Initials RR , Patient presents to the office for diabetic foot care. Patient states that their nails are thickened, elongated and painful. Patient states that it is aggravated by shoe gear. Onset is gradual., Patient denies taking blood thinners., Date last seen by Dr. Reed was August 2023., Initials JR. * Medical History: * Family History: F ather: PRN - Father: . M other: PRN - Mother: . B rother: SIB - Brother: . * Social History: M igrated Social History: M igrated Social History: History of tobacco use : , Smoking Status : Former smoker. * Medications: T aking LORazepam 0.5 MG Oral Tablet ORAL , Notes to Pharmacist: lorazepam 0.5 MG Oral TabletOriginal Medicationlorazepam 0.5 MG Oral Tablet *Reorder from [facility] for eRx and Interaction Alerts*, Taking Rosuvastatin Calcium 10 MG Oral Tablet ORAL , Notes to Pharmacist: rosuvastatin calcium 10 MG Oral TabletOriginal Medicationrosuvastatin calcium 10 MG Oral Tablet *Reorder from [facility] for eRx and Interaction Alerts*, Taking aspirin 81 MG Delayed Release Oral Tablet ORAL , Notes to Pharmacist: aspirin 81 MG Delayed Release Oral TabletOriginal Medicationaspirin 81 MG Delayed Release Oral Tablet *Reorder from [facility] for eRx and Interaction Alerts*, Taking omeprazole 40 MG Delayed Release Oral Capsule ORAL , Notes to Pharmacist: omeprazole 40 MG Delayed Release Oral CapsuleOriginal Medicationomeprazole 40 MG Delayed Release Oral Capsule *Reorder from [facility] for eRx and Interaction Alerts*, Medication List reviewed and reconciled with the patient * Allergies: C yclobenzaprine: Allergy - Onset Date 01/22/2018. Objective: * Vitals: W t:286lbs, Wt-k.73 kg, Ht: 72.00 in, Ht-cm: 182.88 cm, BMI:38.78Index, Body Surface Area: 2.56. * Examination: P hysical Examination: General appearance: A lert, pleasant, well-nourished and in no acute distress. D ermatologic: Skin findings: S kin is thin, atrophic and lacking pedal hair. Nail pathology: N ails 1, 2, 3, 4, and 5 bilateral are elongated, thick, discolored, and dystrophic with subungual debris. They are painful to palpation. ? V ascular: Dorsalis pedis pulse: 1 /4 b ilateral. Posterior tibial pulse: 0 /4 bilateral. Capillary refill: g reater than 3 seconds. Edema: N o edema bilateral. N eurologic: Gross sensation G rossly intact to light touch. There is negative Tinel's sign. M usculoskeletal: Muscle Strength M uscle strength is 5/5 in regards to dorsiflexion, plantarflexion, inversion, and eversion in bilateral lower extremities. ? Assessment: * Assessment: 1. T inea unguium - B35.1 (Primary) 2 . P ain in right toe(s) - M79.674? 3. P ain in left toe(s) - M79.675 4 . A therosclerosis of [place]it[place] arteries of extremities with intermittent claudication, bilateral legs - I70.213 5 . T ype 2 diabetes mellitus with other circulatory complications - E11.59 Plan: * Treatment: 2. T ype 2 diabetes mellitus with other circulatory complications Notes: Diabetic Foot Care: The patient was educated on diabetes and the lower extremity. The patient was instructed to check his feet daily to report any problems or signs of infection immediately. The patient was provided written information on Diabetic Foot Care as well as the Amputation Prevention Guide. * Procedure Codes: 1 1721 DEBRIDE NAIL, 6 OR MORE, Modifiers: Q8 * Follow Up: 1 0 - 12 weeks (Reason: At-Risk Foot care, sooner if problems develop.) * Billing Information: * Visit Code: * Procedure Codes: 02982 DEBRIDE NAIL, 6 OR MORE. Modifiers: Q8 * ERY MACHINE SETTER Sign off status: Completed true * Provider: Jayesh Guerrero DPM Date: 1 Generated for Jose dinero/Angel/Radha on: 0 07/31/2024 10:39 AM CDT History and Physical Notes * HPI (History of Present Illness) Category Sub-Category Detail Notes Category Not es HPI General care Patient presents to the office for diabetic foot care. Patient states that their nails are thickened, elongated and painful. Patient states that it is aggravated by shoe gear. Onset is gradual. , Patient denies taking prescription blood thinners but does take a daily aspirin. , Date last seen by Dr. Cordon was January 2024. , Initials RR , Patient presents to the office for diabetic foot care. Patient states that their nails are thickened, elongated and painful. Patient states that it is aggravated by shoe gear. Onset is gradual., Patient denies taking blood thinners., Date last seen by Dr. Reed was August 2023., Initials JR Examination Category Sub-Category Detail Notes Category Not es Dermatologic Skin findings: Skin is thin, at rophic and lacking pedal hair Nail pathology: Nails 1, 2, 3, 4, an d 5 bilateral are elongated, thick, discolored, and dystrophic with subungual debris. They are painful to palpation Neurologic Gross sensation Grossly intact t o light touch. There is negative Tinel's sign Vascular Dorsalis pedis pulse: 1/4 bilateral Edema: No edema bilateral Capillary refill: greater than 3 secon ds Posterior tibial pulse: 0/4 bilateral Physical Examination General appearance: Alert, pleasant, well-nourished and in no acute distress Musculoskeletal Muscle Strength Muscle strength is 5/5 in regards to dorsiflexion, plantarflexion, inversion, and eversion in bilateral lower extremities
--- OUTSIDE RECORDS SUMMARY | 2024-07-31 10:39 | XMS_ITS | Clinical Summary ---
Author Organization [facility] Address [address] [place] [address] Care Team Providers Care International Accountant Name Role Phone Rufino Cordon DO Primary Care Provider [phone] Allergies Active Allergy Reactions Criticality Noted Date Comments Atorvastatin Myalgias 03/08/2023 Bupropion Other (see comment) 03/08/2023 Causes tremors Cyclobenzaprine Other (see comment) 03/08/2023 Has severe nightmares Medications ALPRAZolam (XANAX) 0.5 MG tablet Take 1 tablet (0.5 mg total) by mouth 3 (three) times daily as needed for Anxiety. Active aspirin EC (ECOTRIN) 81 MG tablet Take 1 tablet (81 mg total) by mouth daily. Active escitalopram (LEXAPRO) 10 MG tablet Take 1 tablet (10 mg total) by mouth daily. Active metFORMIN ER, OSM, (FORTAMET) 1000 MG TABLET SR 24 HR 24 hr tablet Take 1 tablet (1,000 mg total) by mouth 2 (two) times daily with meals. Active montelukast (SINGULAIR) 10 MG tablet Take 1 tablet (10 mg total) by mouth nightly at bedtime. Active semaglutide (OZEMPIC) 2 MG/1.5ML injection (PEN) Inject 0.25 mg into the skin every 7 days. Takes on Monday Active rosuvastatin (CRESTOR) 20 MG tablet Take 1 tablet (20 mg total) by mouth nightly at bedtime. Active tamsulosin (FLOMAX) 0.4 MG Cap Take 1 capsule (0.4 mg total) by mouth daily. Active vitamin D3, cholecalciferol , (VITAMIN D-3) 10 mcg tablet Take 1 tablet (10 mcg total) by mouth daily. Active ipratropium (ATROVENT) 0.03 % nasal spray 2 sprays by Nasal route every 12 (twelve) hours. 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 Sex and Gender Information Value Date Recorded Sex Assigned at Not on file Legal Sex Male 1:26 AM CDT Gender Identity Not on file Sexual Orientation Not on file Last Filed Vital Signs Vital Sign Reading Time Taken Comments Blood Pressure 108/71 03/16/2023 2:00 PM JOGGER OPERATOR Pulse 81 03/16/2023 2:30 PM JOGGER OPERATOR Temperature 37 C (98.6 F) 03/16/2023 1:35 PM JOGGER OPERATOR Respiratory Rate 18 03/16/2023 2:30 PM JOGGER OPERATOR Oxygen Saturation 96% 03/16/2023 2:30 PM JOGGER OPERATOR Inhaled Oxygen Concentration - - Weight 103.9 kg (229 lb) 03/08/2023 2:19 PM JOGGER OPERATOR Height 180.3 cm (5' 11 ) 03/08/2023 2:19 PM JOGGER OPERATOR Body Mass Index 31.94 03/08/2023 2:19 PM JOGGER OPERATOR Plan of Treatment Health Maintenance Due Date Last Done Comments Colorectal Cancer Screening Colonoscopy (10 Years) 1950 Pneumococcal Vaccine: 65+ Ye ars (1 of 2 - PCV) 1958 Hepatitis C 1970 DTaP, Tdap and Td Vaccines ( 1 - Tdap) 1971 Zoster Vaccines (1 of 2) 2002 Annual Medicare Wellness Visit 2017 COVID-19 Vaccine ( - 2023-2 5 season) 2023 Influenza Adult (#1) 2024 RSV Immunization or 60+ Years (1 - 1-dose 75+ series) 2027 Meningococcal B Vaccine Aged Out No l onger eligible based on patient's age to complete this topic Meningococcal Vaccine Aged Out No dago tobi eligible based on patient's age to complete this topic RSV Immunizations Under 20 Months Aged Out No longer eligible based on patient's age to complete this topic Medical Devices Implanted Type Area Craps Manager Device Identifier Shelf Expiration Date Model / Serial / Lot Inspire Stimulation Lead For Obstructive Sleep Apnea Implanted:Qty: 1 on 03/16/2023 by Brandy Villa MD at [facility] Right: Neck [id number] 10/31/2025 [id number] [id number] 1 / [id number] / N/A Inspire Respiratory Sensing Lead For Obstructive Sleep Apnea Implanted:Qty: 1 on 03/16/2023 by Brandy Villa MD at [facility] Right: Chest NA 02/04/2026 [id number] / [id number] / NA Inspire Implantable Pulse Generator (Ipg) Implanted:Qty: 1 on 03/16/2023 by Brandy Villa MD at [facility] Right: Chest [id number] 02/03/2024 3028 / [id number] / NA Insurance MEDICARE [facility] Care Teams International Accountant Relationship Specialty Start Date End Date Rufino Cordon DO [address] [place] [address] PCP - General FAMILY PRACTICE 03/16/23
--- OUTSIDE RECORDS SUMMARY | 2024-07-31 10:39 | XMS_ITS ---
Author Organization [facility] Address [address] [place], [place] [address] Care Team Providers Care Certified Novell Engineer Name Role Phone IVELISSE GUERRERO Unavailable [phone] Rufino Cordon Unavailable Unavailable Allergies Allergen (clinical [...] Duration) Notes Start Date End Date Status LORazepam 0.5 MG Oral Tablet ORAL lorazepam 0.5 MG Oral TabletOriginal Medicationlorazepam 0.5 MG Oral Tablet *Reorder from [facility] for eRx and Interaction Alerts* 01/22/2018 Active omeprazole 40 MG Delayed Release Oral Capsule ORAL omeprazole 40 MG Delayed Release Oral CapsuleOriginal Medicationomeprazole 40 MG Delayed Release Oral Capsule *Reorder from [facility] for eRx and Interaction Alerts* 01/22/2018 Active Rosuvastatin Calcium 10 MG Oral Tablet ORAL rosuvastatin calcium 10 MG Oral TabletOriginal Medicationrosuvastatin calcium 10 MG Oral Tablet *Reorder from [facility] for eRx and Interaction Alerts* 01/22/2018 Active aspirin 81 MG Delayed Release Oral Tablet ORAL aspirin 81 MG Delayed Release Oral TabletOriginal Medicationaspirin 81 MG Delayed Release Oral Tablet *Reorder from [facility] for eRx and Interaction Alerts* 01/22/2018 Active Encounters Encounter Location Date Provider Diagnosis [facility] [address] [place], [place] [id number] 05/27/2024 IVELISSE GUERRERO Tinea unguium B35.1 ; Pain in right toe(s) M79.674 ; Pain in left toe(s) M79.675 ; Atherosclerosis of [place] arteries of extremities with intermittent claudication, bilateral legs I70.213 and Type 2 diabetes mellitus with other circulatory complications E11.59 Assessments Encounter Date Diagnosis (ICD Code) Assessment Notes Treatment Notes Treatment Clinical Notes Section Notes 05/27/2024 Tinea unguium (ICD-10 - B35.1) NAIL DEBRIDEMENT: Nails 1-5 Bilateral were debrided extensively with nail nippers and emery board, reducing length and girth to pink healthy tissue with any subungual debris and necrotic tissue removed 05/27/2024 Pain in right toe(s) (ICD-10 - M79.674) 05/27/2024 Pain in left toe(s) (ICD-10 - M79.675) 05/27/2024 Atherosclerosis of [place] arteries of extremities with intermittent claudication, bilateral legs (ICD-10 - I70.213) 05/27/2024 Type 2 diabetes mellitus with other circulatory [...] develop. Provider Name:ROSARIO NOLASCO, 08/01/2024 08:10:00 AM, [address] [place] [address], [place], [place], [phone], Progress Notes * RICKY DAS WDOB:1950 (74 yo M)Acc No.[id number]:05/27/2024 Patient: RICKY NICHOLAS Provider: Jayesh Guerrero DPM :1950 A ge:74 Y S ex:Male Date:05/27/2024 Address:[address] [place] [address] Subjective: * Chief Complaints: * Irene lerma presents for at-risk foot care . The patient has painful toenails that are causing difficulty with ambulation and shoegear. The onset is gradual. The patient has diabetes mellitus * HPI: H PI: General care Irene lerma presents to the office for diabetic foot care. Patient states that their nails are thickened, elongated and painful. Patient states that it is aggravated by shoe gear. Onset is gradual., Patient denies taking prescription blood thinners but does take a daily aspirin., Date last seen by Dr. Cordon was May 2024. I nitials LB ,?. * Medical History: * Surgical History: * Hospitalization/Major Diagno stic Procedure: * Family History: F ather: PRN - Father: . M other: PRN - Mother: . B rother: SIB - Brother: . * Social History: M igrated Social History: M igrated Social History: History of tobacco use : , Smoking Status : Former smoker. * Medications: T akingLORazepam 0.5 MG Oral Tablet ORAL , Notes to Pharmacist: lorazepam 0.5 MG Oral TabletOriginal Medicationlorazepam 0.5 MG Oral Tablet *Reorder from [employer] for eRx and Interaction Alerts*Rosuvastatin Calcium 10 MG Oral Tablet ORAL , Notes to Pharmacist: rosuvastatin calcium 10 MG Oral TabletOriginal Medicationrosuvastatin calcium 10 MG Oral Tablet *[facility]*aspirin 81 MG Delayed Release Oral Tablet ORAL , Notes to Pharmacist: aspirin 81 MG Delayed Release Oral TabletOriginal Medicationaspirin 81 MG Delayed Release Oral Tablet *Reorder from [facility] for eRx and Interaction Alerts*omeprazole 40 MG Delayed Release Oral Capsule ORAL , Notes to Pharmacist: omeprazole 40 MG Delayed Release Oral CapsuleOriginal Medicationomeprazole 40 MG Delayed Release Oral Capsule *Reorder from [facility] for eRx and Interaction Alerts*Medication List reviewed and reconciled with the patientTaking LORazepam 0.5 MG Oral Tablet ORAL , Notes to Pharmacist: lorazepam 0.5 MG Oral TabletOriginal Medicationlorazepam 0.5 MG Oral Tablet *Reorder from [facility] for eRx and Interaction Alerts*Taking Rosuvastatin Calcium 10 MG Oral Tablet ORAL , Notes to Pharmacist: rosuvastatin calcium 10 MG Oral TabletOriginal Medicationrosuvastatin calcium 10 MG Oral Tablet *Reorder from [facility] for eRx and Interaction Alerts*Taking aspirin 81 MG Delayed Release Oral Tablet ORAL , Notes to Pharmacist: aspirin 81 MG Delayed Release Oral TabletOriginal Medicationaspirin 81 MG Delayed Release Oral Tablet *Reorder from [facility] for eRx and Interaction Alerts*Taking omeprazole 40 MG Delayed Release Oral Capsule ORAL , Notes to Pharmacist: omeprazole 40 MG Delayed Release Oral CapsuleOriginal Medicationomeprazole 40 MG Delayed Release Oral Capsule *Reorder from [facility] for eRx and Interaction Alerts*Medication List reviewed and reconciled with the patient * Allergies: C yclobenzaprine: Allergy - Onset Date 01/22/2018no[Allergies Verified] Objective: * Vitals: * Examination: P hysical Examination: General appearance: [...] - M79.675 4 . A therosclerosis of [place] arteries of extremities with intermittent claudication, bilateral [...] Information: * Visit Code: * Procedure Codes: 83144 DEBRIDE NAIL, 6 OR MORE. Modifiers: Q8 * R RESOURCE AGENT Sign off status: Completed true * Provider: Jayesh Guerrero DPM Date: 0 05/27/2024 Generated for Jose dinero/Angel/Radha on: 0 07/31/2024 [...] gear. Onset is gradual., Patient denies taking prescription blood thinners but does take a daily aspirin., Date last seen by Dr. Cordon was May 2024. Initials LB , Examination Category Sub-Category Detail Notes Category Not [...]
--- OUTSIDE RECORDS SUMMARY | 2024-07-31 10:39 | XMS_ITS | Patient Health Record ---
Author Organization [facility] Address [address] [place], [place] [id number] Care Team Providers Care Inspector Material Disposition Name Role Phone IVELISSE GUERRERO Unavailable [phone] Rufino Cordon Unavailable Unavailable Allergies Allergen (clinical drug ingredient) Drug/Non Drug Allergy documented on EMR Reaction Allergy Type Onset Date Status cyclobenzaprine Cyclobenzaprine Unknown Drug Allergy 01/22 active Reason For Referral No Information Medications Medication SIG (Take, Route, Frequency, Duration) Notes Start Date End Date Status LORazepam 0.5 MG Oral Tablet ORAL lorazepam 0.5 MG Oral TabletOriginal Medicationlorazepam 0.5 MG Oral Tablet *Reorder from [facility] for eRx and Interaction Alerts* 01/22/2018 Active omeprazole 40 MG Delayed Release Oral Capsule ORAL omeprazole 40 MG Delayed Release Oral CapsuleOriginal Medicationomeprazole 40 MG Delayed Release Oral Capsule *Reorder from [facility] for eRx and Interaction Alerts* 01/22/2018 Active Rosuvastatin Calcium 10 MG Oral Tablet ORAL rosuvastatin calcium 10 MG Oral TabletOriginal Medicationrosuvastatin calcium 10 MG Oral Tablet *Reorder from [facility] for eRx and Interaction Alerts* 01/22/2018 Active aspirin 81 MG Delayed Release Oral Tablet ORAL aspirin 81 MG Delayed Release Oral TabletOriginal Medicationaspirin 81 MG Delayed Release Oral Tablet *Reorder from [facility] for eRx and Interaction Alerts* 01/22/2018 Active Immunizations Vaccine Route Administration Date Status Comme nts Influenza, high dose seasonal Unknown 02/09/2023 Admini stered Vital Signs Height-cm 182.88 cm 02/26/2024 Weight-kg 129.73 kg 02/26/2024 Height 72.00 in 02/26/2024 Weight 286 lbs 02/26/2024 BMI 38.78 kg/m2 02/26/2024 Encounters Encounter Location Date Provider Diagnosis [facility] [address] [place] [id number] 10/16/2023 IVELISSE SNOOK Tinea unguium B35.1 ; Pain in right toe(s) M79.674 ; Pain in left toe(s) M79.675 ; Atherosclerosis of [place] arteries of extremities with intermittent claudication, bilateral legs I70.213 and Type 2 diabetes mellitus with other circulatory complications E11.59 [facility] [address] [place] [address] [id number] 12/25/2023 IVELISSE SNOOK Tinea unguium B35.1 ; Pain in right toe(s) M79.674 ; Pain in left toe(s) M79.675 ; Atherosclerosis of [place] arteries of extremities with intermittent claudication, bilateral legs I70.213 and Type 2 diabetes mellitus with other circulatory complications E11.59 [facility] [address] [place] [address] [id number] 02/26/2024 IVELISSE SNOOK Tinea unguium B35.1 ; Pain in right toe(s) M79.674 ; Pain in left toe(s) M79.675 ; Atherosclerosis of [place] arteries of extremities with intermittent claudication, bilateral legs I70.213 and Type 2 diabetes mellitus with other circulatory complications E11.59 [facility] [address] [place] [address] [id number] 05/27/2024 IVELISSE SNOOK Tinea unguium B35.1 ; Pain in right toe(s) M79.674 ; Pain in left toe(s) M79.675 ; Atherosclerosis of [place] arteries of extremities with intermittent claudication, bilateral legs I70.213 and Type 2 diabetes mellitus with other circulatory complications E11.59 Assessments Encounter Date Diagnosis (ICD Code) Assessment Notes Treatment Notes Treatment Clinical Notes Section Notes 10/16/2023 Tinea unguium (ICD-10 - B35.1) NAIL DEBRIDEMENT: Nails 1-5 Bilateral were debrided extensively with nail nippers and emery board, reducing length and girth to pink healthy tissue with any subungual debris and necrotic tissue removed 10/16/2023 Pain in right toe(s) (ICD-10 - M79.674) 12/25/2023 Tinea unguium (ICD-10 - B35.1) NAIL DEBRIDEMENT: Nails 1-5 Bilateral were debrided extensively with nail nippers and emery board, reducing length and girth to pink healthy tissue with any subungual debris and necrotic tissue removed 12/25/2023 Pain in right toe(s) (ICD-10 - M79.674) 02/26/2024 Tinea unguium (ICD-10 - B35.1) NAIL DEBRIDEMENT: Nails 1-5 Bilateral were debrided extensively with nail nippers and emery board, reducing length and girth to pink healthy tissue with any subungual debris and necrotic tissue removed 05/27/2024 Tinea unguium (ICD-10 - B35.1) NAIL DEBRIDEMENT: Nails 1-5 Bilateral were debrided extensively with nail nippers and emery board, reducing length and girth to pink healthy tissue with any subungual debris and necrotic tissue removed 05/27/2024 Pain in right toe(s) (ICD-10 - M79.674) 02/26/2024 Pain in right toe(s) (ICD-10 - M79.674) 12/25/2023 Pain in left toe(s) (ICD-10 - M79.675) 10/16/2023 Pain in left toe(s) (ICD-10 - M79.675) 10/16/2023 Atherosclerosis of [place] arteries of extremities with intermittent claudication, bilateral legs (ICD-10 - I70.213) 02/26/2024 Pain in left toe(s) (ICD-10 - M79.675) 12/25/2023 Atherosclerosis of [place] arteries of extremities with intermittent claudication, bilateral legs (ICD-10 - I70.213) 05/27/2024 Pain in left toe(s) (ICD-10 - M79.675) 02/26/2024 Atherosclerosis of [place] arteries of extremities with intermittent claudication, bilateral legs (ICD-10 - I70.213) 12/25/2023 Type 2 diabetes mellitus with other circulatory complications (ICD-10 - E11.59) Diabetic Foot Care: The patient was educated on diabetes and the lower extremity. The patient was instructed to check his feet daily to report any problems or signs of infection immediately. The patient was provided written information on Diabetic Foot Care as well as the Amputation Prevention Guide. 05/27/2024 Atherosclerosis of [place] arteries of extremities with intermittent claudication, bilateral legs (ICD-10 - I70.213) 10/16/2023 Type 2 diabetes mellitus with other circulatory complications (ICD-10 - E11.59) Diabetic Foot Care: The patient was educated on diabetes and the lower extremity. The patient was instructed to check his feet daily to report any problems or signs of infection immediately. The patient was provided written information on Diabetic Foot Care as well as the Amputation Prevention Guide. 02/26/2024 Type 2 diabetes mellitus with other circulatory complications (ICD-10 - E11.59) Diabetic Foot Care: The patient was educated on diabetes and the lower extremity. The patient was instructed to check his feet daily to report any problems or signs of infection immediately. The patient was provided written information on Diabetic Foot Care as well as the Amputation Prevention Guide. 05/27/2024 Type 2 diabetes mellitus with other circulatory complications (ICD-10 - E11.59) Diabetic Foot Care: The patient was educated on diabetes and the lower extremity. The patient was instructed to check his feet daily to report any problems or signs of infection immediately. The patient was provided written information on Diabetic Foot Care as well as the Amputation Prevention Guide. Plan Of Treatment Next Appt Details Provider Name:ROSARIO NOLASCO, 08/01/2024 08:10:00 AM, [address] [place] [address], [phone], Insurance Providers Payer Name Payer Address Payer Phone Subscriber Number Group Number Insured Name Patient Relationship to Insured Coverage Start Date Coverage End Date Medicare Part B [facility] [address] [place] [phone] [id number] RICKY CHAVEZ Self - patient is the insured [address] [place] [address] [id number] RICKY CHAVEZ Self - patient is the insured
--- OUTSIDE RECORDS SUMMARY | 2024-07-31 10:40 | XMS_ITS ---
Author Organization [facility] Address [address] [place], [place] [id number] Care Team Providers Care Building Custodial Supervisor Name Role Phone IVELISSE GUERRERO Unavailable [phone] Rufino Cordon Unavailable Unavailable Allergies Allergen (clinical drug ingredient) Drug/Non Drug Allergy documented on EMR Reaction Allergy Type Onset Date Status cyclobenzaprine Cyclobenzaprine Unknown Drug Allergy 01/22 active REASON FOR VISIT Patient presents with painful toenails of both feet. They cause pain with shoes and ambulation. Theonset was gradual. The patient has diabetes mellitus Medications Medication SIG (Take, Route, Frequency, Duration) Notes Start Date End Date Status LORazepam 0.5 MG Oral Tablet ORAL lorazepam 0.5 MG Oral TabletOriginal Medicationlorazepam 0.5 MG Oral Tablet *Reorder from [facility] for eRx and Interaction Alerts* 01/22/2018 Active Rosuvastatin Calcium 10 MG Oral Tablet ORAL rosuvastatin calcium 10 MG Oral TabletOriginal Medicationrosuvastatin calcium 10 MG Oral Tablet *Reorder from [facility] for eRx and Interaction Alerts* 01/22/2018 Active aspirin 81 MG Delayed Release Oral Tablet ORAL aspirin 81 MG Delayed Release Oral TabletOriginal Medicationaspirin 81 MG Delayed Release Oral Tablet *Reorder from [facility] for eRx and Interaction Alerts* 01/22/2018 Active omeprazole 40 MG Delayed Release Oral Capsule ORAL omeprazole 40 MG Delayed Release Oral CapsuleOriginal Medicationomeprazole 40 MG Delayed Release Oral Capsule *Reorder from [facility] for eRx and Interaction Alerts* 01/22/2018 Active Encounters Encounter Location Date Provider Diagnosis [facility] [address] [place], [place] [id number] 12/25/2023 IVELISSE GUERRERO Tinea unguium B35.1 ; Pain in right toe(s) M79.674 ; Pain in left toe(s) M79.675 ; Atherosclerosis of [place] arteries of extremities with intermittent claudication, bilateral legs I70.213 and Type 2 diabetes mellitus with other circulatory complications E11.59 Assessments Encounter Date Diagnosis (ICD Code) Assessment Notes Treatment Notes Treatment Clinical Notes Section Notes 12/25/2023 Tinea unguium (ICD-10 - B35.1) NAIL DEBRIDEMENT: Nails 1-5 Bilateral were debrided extensively with nail nippers and emery board, reducing length and girth to pink healthy tissue with any subungual debris and necrotic tissue removed 12/25/2023 Pain in right toe(s) (ICD-10 - M79.674) 12/25/2023 Pain in left toe(s) (ICD-10 - M79.675) 12/25/2023 Atherosclerosis of [place] arteries of extremities with intermittent claudication, bilateral [...] Prevention Guide. Next Appt Details Follow Up: 10-12 Weeks, Reas on: At risk foot care, sooner if problems arise Provider Name:ROSARIO NOLASCO, 08/01/2024 08:10:00 AM, [address] [place] [address], [place], [place], [phone], Progress Notes * RICKY DAS WDOB:1950 (73 yo M)Acc No.[id number]:12/25/2023 Patient: RICKY NICHOLAS Provider: Jayesh Guerrero DPM :1950 A ge:73 Y S ex:Male Date:12/25/2023 Address:[address] [place] [address] Subjective: * Chief Complaints: * 1 . Patient presents with painful toenails of both feet. They cause pain with shoes and ambulation. The onset was gradual. The patient has diabetes mellitus. * [...] Date last seen by Dr. Cordon was 1 week ago., Initials LB. * Medical History: * Family History: F [...] Medicationlorazepam 0.5 MG Oral Tablet [facility]*, Taking Rosuvastatin Calcium 10 MG Oral Tablet ORAL , Notes to Pharmacist: rosuvastatin calcium 10 MG Oral TabletOriginal Medicationrosuvastatin calcium 10 MG Oral Tablet [facility]*, Taking aspirin 81 MG Delayed Release Oral Tablet ORAL , Notes to Pharmacist: aspirin 81 MG Delayed Release Oral TabletOriginal Medicationaspirin 81 MG Delayed Release Oral Tablet [facility]*, Taking omeprazole 40 MG Delayed Release Oral Capsule ORAL , Notes to Pharmacist: omeprazole 40 MG Delayed Release Oral CapsuleOriginal Medicationomeprazole 40 MG Delayed Release Oral Capsule *Reorder from [facility] for eRx and Interaction Alerts* * Allergies: C yclobenzaprine: Allergy - Onset Date 01/22/2018. Objective: * Examination: C onstitutional: Constitutional T he patient is awake, alert, well developed, well groomed and well nourished. D ermatologic: Skin findings: S kin is thin, atrophic and lacking pedal hair. Nail pathology: N ails 1-5 bilateral are elongated, thick, discolored, and dystrophic with subungual debris. They are painful to palpation. ? V ascular: Dorsalis pedis pulse: 0 /4, bilateral. Posterior tibial pulse: 1 /4, bilaterally. Capillary refill: g reater than 3 seconds. Edema: N o edema, bilateral. N eurologic: Gross sensation G ross sensation is intact to light touch.? M usculoskeletal: Muscle Strength M uscle strength is 5/5 in regards to dorsiflexion, plantarflexion, inversion, and eversion in bilateral lower extremities. ? Assessment: * Assessment: 1. T inea unguium - B35.1 (Primary) 2 . P ain in right toe(s) - M79.674 3 . P ain in left toe(s) - M79.675 4 . A therosclerosis of [place] arteries of extremities with intermittent claudication, bilateral [...] MORE, Modifiers: Q8 * Follow Up: 1 0-12 Weeks (Reason: At risk foot care, sooner if problems arise) * Billing Information: * Visit Code: * Procedure Codes: 40519 DEBRIDE NAIL, 6 OR MORE. Modifiers: Q8 * Sign off status: Completed true * Provider: Jayesh Guerrero DPM Date: 0 12/25/2023 Generated for Jose Stallworth on: 0 07/31/2024 10:39 AM CDT History [...] Date last seen by Dr. Cordon was 1 week ago., Initials LB Examination Category Sub-Category Detail Notes Category Not es Dermatologic Skin findings: Skin is thin, at rophic and lacking pedal hair Nail pathology: Nails 1-5 bilateral are elongated, thick, discolored, and dystrophic with subungual debris. They are painful to palpation Neurologic Gross sensation Gross sensation is intact to light touch Vascular Dorsalis pedis pulse: 0/4, bilateral Edema: No edema, bilateral Capillary refill: greater than 3 secon ds Posterior tibial pulse: 1/4, bilaterally Musculoskeletal Muscle Strength Muscle strength is 5/5 in regards to dorsiflexion, plantarflexion, inversion, and eversion in bilateral lower extremities Constitutional Constitutional The patient is a wake, alert, well developed, well groomed and well nourished
[2024-07-31 11:17] LABS: Prostate Specific Antigen 6.7 ng/mL (< OR = 4.0)
== END 2024-07-31 09:45 | disposition home or self-care (01) ==
LOC: CHSLAB 09:46
PROVIDERS: PCP Family Medicine; Visit Provider Urology
DX: C61 Malignant neoplasm of prostate (principal)
CPT/HCPCS: 36415; 84153

== ENCOUNTER 2024-11-16 09:24 | Outpatient (CLI) | payer MEDICARE, SELFPAY ==
--- OUTSIDE RECORDS SUMMARY | 2024-11-16 09:28 | XMS_ITS | Clinical Summary ---
Author Organization [facility] sellpoints Address [address] [place] [address] Care Team Providers Care Tube Lancer Name Role Phone Unknown, Provider Primary Care Provider Unavaila ble Source Comments [facility],non-owned Affiliates and Associated Physician Practices is amultiple site organization consisting of ambulatory clinics and hospital sitesin [place], [place], [place] and [place]. This disclosure is being madepursuant to the Care Everywhere program and may not contain all information available regarding this patient. Last updated 18.[facility] Allergies Active Allergy Reactions Criticality Noted Date Comments Atorvastatin Unknown 11/12/2024 Bupropion Unknown 11/12/2024 Cyclobenzaprine Unknown 11/12/2024 Medications * Be aware that medications may not be up to date on this document. Alwaysverify current medications with the patient. aspirin (Aspirin) 81 MG chew tablet Take 1 (one) tablet by mouth once daily (chew and swallow) Active rosuvastatin (Crestor) 20 MG tablet Take 1 (one) tablet by mouth at bedtime Active tamsulosin (Flomax) 0.4 MG capsule Take 1 (one) capsule by mouth at bedtime At the same time every day after a meal. Active metFORMIN (Glucophage) 1000 MG tablet Take 1 (one) tablet by mouth 2 times daily with morning and evening meal Active escitalopram (Lexapro) 10 MG tablet Take 1 (one) tablet by mouth once daily Active ALPRAZolam (Xanax) 0.5 MG tablet Take 1 (one) tablet by mouth once daily Active montelukast (Singulair) 10 MG tablet Take 1 (one) tablet by mouth at bedtime Active Semaglutide (1 MG/DOSE) 4 MG/3ML Subcutaneous Solution Pen-injector (Ozempic (1 MG/DOSE)) Inject 1 (one) mg subcutaneously every 7 days (once a week) Active calcium citrate-vitamin D (Citracal Plus D) 315-5 MG-MCG tablet Take 2 (two) tablets by mouth once daily Active multivitamin daily tablet Take 1 (one) tablet by mouth daily with food Active ibuprofen (Motrin) 400 MG tablet Take 1 (one) tablet by mouth every 6 hours as needed for Pain Active ipratropium (Atrovent) 0.03 % nasal spray [place] into each nostril 2 times daily Active Encounters Date Type Department Care Team Description 11/12/2024 10:55 AM CDT - 11/12/2024 2:07 PM CDT Emergency [facility] - Emergency Department [address] [place] [address] Asiya Morales APRN-MICAH Altered mental status, unspecified altered mental status type (Primary Dx) Discharge Disposition: Home or Self Care 11/12/2024 Travel from Last 3 Months Social History Tobacco Use Types Packs/Day Years Used Date Smoking Tobacco: Never Smokeless Tobacco: Never Tobacco Cessation:Counseling Given: No Alcohol Use Standard Drinks/Week Comments Never 0 (1 standard drink = 0.6 oz pur e alcohol) Sex and Gender Information Value Date Recorded Sex Assigned at Male 11/12/2024 11:25 AM CDT Legal Sex Male 10:55 AM CDT Gender Identity Not on file Sexual Orientation Not on file Last Filed Vital Signs Vital Sign Reading Time Taken Comments Blood Pressure 173/95 11/12/2024 11:06 AM CDT Pulse 97 11/12/2024 11:06 AM CDT Temperature 36.6 C (97.9 F) 11/12/2024 11:06 AM CDT Respiratory Rate 20 11/12/2024 11:06 AM CDT Oxygen Saturation 98% 11/12/2024 11:06 AM CDT Inhaled Oxygen Concentration - - Weight 104.3 kg (230 lb) 11/12/2024 11:06 AM CDT Height 180.3 cm (5' 11) 11/12/2024 11:06 AM CDT Body Mass Index 32.08 11/12/2024 11:06 AM CDT Plan of Treatment Health Maintenance Due Date Last Done Comments COLON MONITORING 1950 COLONOSCOPY - COLON CA SCREENING 1950 CT COLONOGRAPHY - COLON CA SCREENING 1950 FIT - COLON CA SCREENING 1950 FLEX SIG - COLON CA SCREENING 1950 MEDICARE AWV 12 MONTHS 1950 HEPATITIS C SCREENING 05/09/1970 DTAP/TDAP/TD VACCINES (1 - Tdap) 1971 PNEUMOCOCCAL VACCINE 50+ (1 of 1 - PCV) 2002 ZOSTER VACCINE (1 of 2) 2002 COVID-19 VACCINE ( - 2023-2 5 season) 2023 DEPRESSION SCREENING 05/01/2024 INFLUENZA VACCINE (#1) 2024 COLOGUARD (AGES 45-75) - COL ON CA SCREENING 02/27/2027 02/28/2024 Colorectal Cancer Screening 02/27/2027 Respiratory Syncytial Virus (RSV) Vaccine Pt: or over 60 yrs (1 - 1-dose 75+ series) 2027 HEPATITIS B VACCINE Aged Out No longe r eligible based on patient's age to complete this topic HIB VACCINE Aged Out No longer eligi ble based on patient's age to complete this topic HPV VACCINE Aged Out No longer eligi ble based on patient's age to complete this topic MENINGOCOCCAL (Group B) VACC INE SHARED DECISION-MAKING Aged Out No longer eligibl e based on patient's age to complete this topic MENINGOCOCCAL GROUPS A/C/Y/W VACCINE Aged Out No longer eligible b ased on patient's age to complete this topic Procedures Procedure Name Priority Date/Time Associated Diagnosis Comments CT ANGIO BRAIN AND NECK Routine 11/12/2024 12:40 PM CDT Altered mental status, unspecified altered mental status type URINALYSIS REFLEX MICROSCOPIC REFLEX CULTURE STAT 11/12/2024 12:06 PM CDT BLOOD CULT RST RFLXED Routine 11/12/2024 11:48 AM CDT CULTURE BLOOD STAT 11/12/2024 11:48 AM CDT XR CHEST 1VW PORTABLE STAT 11/12/2024 11:29 AM CDT Altered mental status, unspecified altered mental status type CT HEAD WO CONTRAST STAT 11/12/2024 1 1:26 AM CDT Altered mental status, unspecified altered mental status type EKG 12-LEAD Routine 11/12/2024 11:07 AM CDT Altered mental status, unspecified altered mental status type LACTIC ACID BLOOD STAT 11/12/2024 11: 05 AM CDT PT-INR STAT 11/12/2024 11:05 AM CDT TROPONIN I STAT 11/12/2024 11:05 AM CDT COMPREHENSIVE METABOLIC PANEL STAT 11/12/2024 11:05 AM CDT CBC W AUTO DIFFERENTIAL STAT 11/12/2024 11:05 AM CDT BLOOD CULT RST RFLXED Routine 11/12/2024 11:05 AM CDT CULTURE BLOOD STAT 11/12/2024 11:05 AM CDT from Last 3 Months Results * CT Angio Brain And Neck (11/12/2024 12:40 PM CDT) Anatomical Region Laterality Modality Head Computed Tomogra phy 11/12/2024 1:25 PM CDT Impressions 11/12/2024 1:[address] evidence of acute intracranial process. 2. No occlusion, focal stenosis, or aneurysm of the intracranial arterial vasculature. 3. No occlusion, hemodynamically significant stenosis, or evidence of dissection of the cervical arterial vasculature. 4. Incidental visualization of biapical mosaic pulmonary parenchymal attenuation pattern as can be seen with air trapping and/or small airways disease. 5. CTA head/neck (stroke) findings were communicated by operational support center staff to ordering physician at time of interpretation. THIS IS AN ELECTRONICALLY VERIFIED FINAL REPORT 11/12/2024 1:33 PM - Electronically signed by Munir Chiu M.D. GUILLERMINA: GUILLERMINA Report ID: [id number] Reading Location: [id number] [facility] 11/12/2024 1:33 [place] [address] RADIOLOGY REPORT Patient Name: RICKY DAS Date of Service:11/12/2024 Date of :1950 Age:74 Sex:M Requesting Shawna MORALES Examination:CT ANGIO BRAIN AND NECK EXAM DESCRIPTION: CTA HEAD AND NECK WITHOUT AND WITH CONTRAST REASON FOR STUDY: Acute altered mental status, tremors, and shortness of breath beginning this morning at approximately 1030. No provided focal neurologic deficits. No provided history of trauma or inciting and/or aggravating events. No provided past medical or surgical history. TECHNIQUE: Axial images were first obtained through the brain without contrast. Axial dynamic scanning technique with dynamic contrast enhancement through the intracranial and extracranial carotid and vertebral arteries. Multiplanar reconstruction. All stenosis measurements are based on NASCET criteria. 3D MIP images rendered on scanning unit and reviewed at time of interpretation. Automated exposure control was used as a dose optimization technique for this examination. CONTRAST TYPE/DOSE: 100 mL Isovue 370 injected via right forearm without reported incident. COMPARISON: CT head without contrast performed shortly prior to this study. FINDINGS: BRAIN: No acute intra-axial hemorrhage. No edema, mass effect, midline shift, or herniation. No evidence of acute territorial ischemia or infarct. No suspicious focal white matter lesions with preservation of the severino-white junction. EXTRA-AXIAL SPACES: No extra-axial fluid collections. No unenhanced CT evidence of extra-axial mass. There is intracranial calcific atherosclerotic disease. CALVARIUM: No acute calvarial fracture. SINUSES/MASTOIDS: No fluid levels of the visualized paranasal sinuses. Mastoid air cells well-developed and well aerated. ORBITS: No acute abnormality. Ocular lenses and globes normal in conformation and position. OTHER: No other significant abnormality. 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 No focal stenosis. No aneurysm. POSTERIOR CIRCULATION: The distal vertebral arteries are patent as is the basilar artery. No aneurysm. BRAIN: No gross evidence of enhancing intracranial lesions. CAROTID CTA RIGHT CAROTIDS: No occlusion, hemodynamically significant stenosis, or evidence of dissection of the right carotid arterial system. LEFT CAROTIDS: No occlusion, hemodynamically significant stenosis, or evidence of dissection of the left carotid arterial system. LEFT VERTEBRAL: Patent without evidence of stenosis or dissection. RIGHT VERTEBRAL: Patent without evidence of stenosis or dissection. AORTIC ARCH: 2 vessel aortic arch manifested as common origin of the brachiocephalic and left common carotid arteries. Patent subclavian arteries. NECK SOFT TISSUE: No acute abnormality. No thyroid nodule greater than 1 cm. INCLUDED LUNGS: Incidental visualization of biapical mosaic pulmonary parenchymal attenuation pattern as can be seen with air trapping and/or small airways disease. OTHER: No other significant finding. Procedure Note Munir Chiu MD - 11/12/2024 [place] [address] RADIOLOGY REPORT Patient Name: RICKY DAS Date of Service:11/12/2024 Date of :1950 Age:74 Sex:M Requesting Shawna MORALES Examination:CT ANGIO BRAIN AND NECK EXAM DESCRIPTION: CTA HEAD AND NECK WITHOUT AND WITH CONTRAST REASON FOR STUDY: Acute altered mental status, tremors, and shortness of breath beginning this morning at approximately 1030. No provided focal neurologic deficits. No provided history of trauma or inciting and/or aggravating events. No provided past medical or surgical history. TECHNIQUE: Axial images were first obtained through the brain without contrast. Axial dynamic scanning technique with dynamic contrast enhancement through the intracranial and extracranial carotid and vertebral arteries. Multiplanar reconstruction. All stenosis measurements are based on NASCET criteria. 3D MIP images rendered on scanning unit and reviewed at time of interpretation. Automated exposure control was used as a dose optimization technique for this examination. CONTRAST TYPE/DOSE: 100 mL Isovue 370 injected via right forearm without reported incident. COMPARISON: CT head without contrast performed shortly prior to this study. FINDINGS: BRAIN: No acute intra-axial hemorrhage. No edema, mass effect, midline shift, or herniation. No evidence of acute territorial ischemia or infarct. No suspicious focal white matter lesions with preservation of the severino-white junction. EXTRA-AXIAL SPACES: No extra-axial fluid collections. No unenhanced CT evidence of extra-axial mass. There is intracranial calcific atherosclerotic disease. CALVARIUM: No acute calvarial fracture. SINUSES/MASTOIDS: No fluid levels of the visualized paranasal sinuses. Mastoid air cells well-developed and well aerated. ORBITS: No acute abnormality. Ocular lenses and globes normal in conformation and position. OTHER: No other significant abnormality. 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 No focal stenosis. No aneurysm. POSTERIOR CIRCULATION: The distal vertebral arteries are patent as is the basilar artery. No aneurysm. BRAIN: No gross evidence of enhancing intracranial lesions. CAROTID CTA RIGHT CAROTIDS: No occlusion, hemodynamically significant stenosis, or evidence of dissection of the right carotid arterial system. LEFT CAROTIDS: No occlusion, hemodynamically significant stenosis, or evidence of dissection of the left carotid arterial system. LEFT VERTEBRAL: Patent without evidence of stenosis or dissection. RIGHT VERTEBRAL: Patent without evidence of stenosis or dissection. AORTIC ARCH: 2 vessel aortic arch manifested as common origin of the brachiocephalic and left common carotid arteries. Patent subclavian arteries. NECK SOFT TISSUE: No acute abnormality. No thyroid nodule greater than 1 cm. INCLUDED LUNGS: Incidental visualization of biapical mosaic pulmonary parenchymal attenuation pattern as can be seen with air trapping and/or small airways disease. OTHER: No other significant finding. IMPRESSION 1. No CT evidence of acute intracranial process. 2. No occlusion, focal stenosis, or aneurysm of the intracranial arterial vasculature. 3. No occlusion, hemodynamically significant stenosis, or evidence of dissection of the cervical arterial vasculature. 4. Incidental visualization of biapical mosaic pulmonary parenchymal attenuation pattern as can be seen with air trapping and/or small airways disease. 5. CTA head/neck (stroke) findings were communicated by operational support center staff to ordering physician at time of interpretation. THIS IS AN ELECTRONICALLY VERIFIED FINAL REPORT 11/12/2024 1:33 PM - Electronically signed by Munir Chiu M.D. GUILLERMINA: GUILLERMINA Report ID: [id number] Reading Location: [id number] Asiya Morales ADVANCED MANUFACTURING ENGINEER-CABLE SPLICER ASSISTANT CT ORDERABLES Final R esult * URINALYSIS REFLEX MICROSCOPIC REFLEX CULTURE (11/12/2024 12:06 PM CDT) Color UA Yellow Yellow, Ekaterina 11/12/2024 12:43 PM CDT [facility] Clarity UA Clear Clear, Hazy 11/12/2024 12:43 PM CDT [facility]) Specific [place] UA 1.015 1.000, 1.005, 1.010, 1.015, 1.020, 1.025 11/12/2024 12:43 PM CDT [facility]) pH UA 7.5 5.0, 5.5, 6.0, 6.5, 7.0, 7.5, 8.0, Color Interference 11/12/2024 12:43 PM CDT [facility] ([facility]) Protein UA Negative Negative 11/12/2024 12:43 PM CDT [facility]) Glucose UA Negative Negative, Color Interference 11/12/2024 12:43 PM CDT [facility]) Ketone UA Negative Negative 11/12/2024 12:43 PM CDT [facility]) Bilirubin UA Negative Negative 11/12/2024 12:43 PM CDT [facility]) Blood UA Negative Negative 11/12/2024 12:43 PM CDT [facility]) Leukocyte Esterase UA Negative Negative 11/12/2024 12:43 PM CDT [facility]) Nitrite UA Negative Negative 11/12/2024 12:43 PM CDT [facility]) Urobilinogen UA 0.2 0.2, 1.0 12:43 PM CDT [facility]) Urine Microscopy 11/12/2024 12:43 PM CDT [facility]) Urine URINE SPECIMEN OBTAINED BY CLEAN CATCH PROCEDURE / Unknown Collection / Unknown 11/12/2024 12:06 PM CDT 11/12/2024 12:10 PM CDT us Asiya Morales ADVANCED MANUFACTURING ENGINEER-CABLE SPLICER ASSISTANT LAB - URINALYSIS ORDERA BLES Final Result [facility]) [address] [place] [id number] * XR CHEST 1VW PORTABLE (11/12/2024 11:29 AM CDT) Anatomical Region Laterality Modality Chest Radiographic Mindy ging 11/12/2024 11:3 5 AM CDT Impressions 11/12/2024 11:36 AM CDT 1. Low lung volumes with mild patchy left basilar airspace opacities, which is likely related to subsegmental atelectasis/scarring and less likely developing airspace disease. THIS IS AN ELECTRONICALLY VERIFIED FINAL REPORT 11/12/2024 11:36 AM - Electronically signed by Maida Hall D.O. PS: PS Report ID: [id number] Reading Location: [id number] [facility] 11/12/2024 11:36 AM CDT [address] [address] RADIOLOGY REPORT Patient Name: RICKY DAS Date of Service:11/12/2024 Date of :1950 Age:74 Sex:M Requesting Shawna MORALES Examination:XR CHEST 1VW PORTABLE EXAM DESCRIPTION: XR CHEST 1VW PORTABLE REASON FOR STUDY: Pt. altered mental status began around 10:30 this morning. pt. experiencing course tremors and SOB. Duration: . TECHNIQUE: Single frontal radiographic view(s) of the chest. COMPARISON: None FINDINGS: There are low lung volumes. The heart size is accentuated by low lung volumes. There is a stimulator device generator pack noted overlying the mid right chest. The pulmonary vasculature and mediastinum are grossly unremarkable. There is no definite evidence of a pneumothorax. There is no definite evidence of a pleural effusion. There are mild patchy left basilar airspace opacities. There is a calcified granuloma in the upper left lung. The osseous structures are acutely grossly unremarkable. Procedure Note Maida Hall, - 11/12/2024 [place] [address] RADIOLOGY REPORT Patient Name: RICKY DAS Date of Service:11/12/2024 Date of :1950 Age:74 Sex:M Requesting Shawna MORALES Examination:XR CHEST 1VW PORTABLE EXAM DESCRIPTION: XR CHEST 1VW PORTABLE REASON FOR STUDY: Pt. altered mental status began around 10:30 this morning. pt. experiencing course tremors and SOB. Duration: . TECHNIQUE: Single frontal radiographic view(s) of the chest. COMPARISON: None FINDINGS: There are low lung volumes. The heart size is accentuated by low lung volumes. There is a stimulator device generator pack noted overlying the mid right chest. The pulmonary vasculature and mediastinum are grossly unremarkable. There is no definite evidence of a pneumothorax. There is no definite evidence of a pleural effusion. There are mild patchy left basilar airspace opacities. There is a calcified granuloma in the upper left lung. The osseous structures are acutely grossly unremarkable. IMPRESSION 1. Low lung volumes with mild patchy left basilar airspace opacities, which is likely related to subsegmental atelectasis/scarring and less likely developing airspace disease. THIS IS AN ELECTRONICALLY VERIFIED FINAL REPORT 11/12/2024 11:36 AM - Electronically signed by Maida Hall D.O. PS: PS Report ID: [id number] Reading Location: [place] [address] Asiya Morales ADVANCED MANUFACTURING ENGINEER-CABLE SPLICER ASSISTANT DIAGNOSTIC IMAGING ORDE ONESIMO Final Result * CT HEAD NON CONTRAST - intracranial hemorrhage (11/12/2024 11:26 AM CDT) Anatomical Region Laterality Modality Head Computed Tomogra phy 11/12/2024 11:3 1 AM CDT Impressions 11/12/2024 11:35 AM CDT No evidence of an acute intracranial abnormality. Result of critical test was provided to Asiya Morales by SEVERINO MALDONADO at approximately 11:33 am central time on 11/12/2024 . THIS IS AN ELECTRONICALLY VERIFIED FINAL REPORT 11/12/2024 11:35 AM - Electronically signed by Jim Turcios M.D. CH: COREEN Report ID: [id number] Reading Location: [id number] [facility] 11/12/2024 11:35 [place] [address] RADIOLOGY REPORT Patient Name: RICKY DAS Date of Service:11/12/2024 Date of :1950 Age:74 Sex:M Requesting PhysicianASIYA MORALES Examination:CT HEAD WO CONTRAST EXAM DESCRIPTION: CT HEAD WO CONTRAST REASON FOR STUDY: Pt. altered mental status began 10:30 am this morning. Pt. experiencing course tremors and SOB. Duration: . TECHNIQUE: Axial images acquired through the brain without intravenous contrast. Images stored on PACS. Automated exposure control was used as a dose optimization technique for this examination. COMPARISON: None. FINDINGS: BRAIN: No acute intraparenchymal hemorrhage, cerebral edema, hydrocephalus, mass, or mass effect. EXTRA-AXIAL SPACES: No extra-axial fluid collection or mass. CALVARIUM: No acute skull base or calvarial abnormality. SINUSES/MASTOIDS: Predominantly clear. ORBITS: No significant abnormality. OTHER: No other significant abnormality. Procedure Note Jim Turcios Jr., MD - 11/12/2024 [place] [address] RADIOLOGY REPORT Patient Name: RICKY DAS Date of Service:11/12/2024 Date of :1950 Age:74 Sex:M Requesting PhysicianASIYA MORALES Examination:CT HEAD WO CONTRAST EXAM DESCRIPTION: CT HEAD WO CONTRAST REASON FOR STUDY: Pt. altered mental status began 10:30 am this morning. Pt. experiencing course tremors and SOB. Duration: . TECHNIQUE: Axial images acquired through the brain without intravenous contrast. Images stored on PACS. Automated exposure control was used as a dose optimization technique for this examination. COMPARISON: None. FINDINGS: BRAIN: No acute intraparenchymal hemorrhage, cerebral edema, hydrocephalus, mass, or mass effect. EXTRA-AXIAL SPACES: No extra-axial fluid collection or mass. CALVARIUM: No acute skull base or calvarial abnormality. SINUSES/MASTOIDS: Predominantly clear. ORBITS: No significant abnormality. OTHER: No other significant abnormality. IMPRESSION No evidence of an acute intracranial abnormality. Result of critical test was provided to Asiya Morales by SEVERINO MALDONADO at approximately 11:33 am central time on 11/12/2024 . THIS IS AN ELECTRONICALLY VERIFIED FINAL REPORT 11/12/2024 11:35 AM - Electronically signed by Jim Turcios M.D. CH: COREEN Report ID: [id number] Reading Location: [place] [address] Asiya Morales APRN-CABLE SPLICER ASSISTANT CT ORDERABLES Final R esult * EKG 12-Lead (11/12/2024 11:07 AM CDT) Asiya Moarles APRN-CABLE SPLICER ASSISTANT ECG ORDERABLES Final R esult [facility] * TROPONIN I (11/12/2024 11:05 AM CDT) Troponin I <0.012 0.000 - 0.034 ng/mL 11/12/2024 11:41 AM CDT [facility] ([facility]) Blood BLOOD SPECIMEN / Unknown Line Draw / Unknown 11/12/2024 11:05 AM CDT 11/12/2024 11:05 AM CDT Narrative [facility] ([facility]) - 11/12/2024 11:41 AM CDT AMI Diagnostic cut-off = 0.12ng/mL Values less thatn 0.035 represent the upper limit of normal at the 99th percentile. Values between 0.035 and 0.12 indicate the need for further evaluation. Asiya Morales APRN-CABLE SPLICER ASSISTANT LAB - CHEMISTRY ORDERAB LES Final Result [facility] ([facility]) [address] [place] [address] * (ABNORMAL) PT-INR (11/12/2024 11:05 AM CDT) PT 9.8 9.2 - 11.0 sec 11/12/2024 11:32 AM CDT [facility] ([facility]) INR 0.94(L) 2 - 4 11/12/2024 11:32 AM CDT [facility] ([facility]) Blood BLOOD SPECIMEN / Unknown Line Draw / Unknown 11/12/2024 11:05 AM CDT 11/12/2024 11:04 AM CDT Narrative [facility] ([facility]) - 11/12/2024 11:32 AM CDT Therapeutic Ranges: Prophylaxis, treatment of DVT, PE......... 2.0-3.0 Tissue Heart Valves ..................................... 2.0-3.0 Acute MO ...................................... 2.5-3.5 Valvular Heart Disease ..........................2.5-3.5 Atrial Fibrillation ............................2.5-3.5 Mechanical Heart Vlave .............2.5-3.5 For more Informations see CHEST Vol 119/1 Supp (2000) us Asiya Morales APRN-CABLE SPLICER ASSISTANT LAB - COAGULATION ORDER JOSE Final Result [facility] ([facility]) [address] [place] [address] * (ABNORMAL) CBC W AUTO DIFFERENTIAL (11/12/2024 11:05 AM T) WBC 5.7 4.0 - 10.0 K/uL 11/12/2024 11:12 AM T [facility] [facility] RBC 5.1 4.2 - 5.7 M/ul 11/12/2024 11:12 AM T [facility]) Hemoglobin 14.5 13.0 - 18.0 g/dL 11/12/2024 11:12 AM T [facility]) Hematocrit 44.4 38.0 - 51.0 % 11/12/2024 11:12 AM T [facility]) MCV 87.1 82.0 - 98.0 fL 11/12/2024 11:12 AM T [facility]) MCH 28.4 27.0 - 34.0 pg 11/12/2024 11:12 AM T [facility]) MCHC 32.7 32.0 - 35.0 g/dL 11/12/2024 11:12 AM T [facility]) RDW-CV 11.9 11.4 - 14.6 % 11/12/2024 11:12 AM T [facility]) Platelet Count 183 120 - 410 K/uL 11/12/2024 11:12 AM [facility] ([facility]) MPV 9.3 5.2 - 12.8 fL 11/12/2024 11:12 AM T [facility]) Neutrophils % 67.9 25.0 - 78.0 % 11/12/2024 11:12 AM T [facility]) Lymphocytes % 21.7 10.0 - 50.0 % 11/12/2024 11:12 AM T [facility]) Monocytes % 6.5 0.0 - 11.0 % 11/12/2024 11:12 AM T [facility]) Eosinophils % 3.2(H) 0.0 - 3.0 % 11/12/2024 11:12 AM CDT [facility]) Basophils % 0.5 0.0 - 1.5 % 11/12/2024 11:12 AM CDT [facility]) Neutrophil Absolute 3.9 2.0 - 6.9 K/uL 11/12/2024 11:12 AM CDT [facility]) Lymphocyte Absolute 1.2 0.6 - 4.6 K/uL 11/12/2024 11:12 AM CDT [facility]) Monocyte Absolute 0.4 0.0 - 0.9 K/uL 11/12/2024 11:12 AM CDT [facility]) Eosinophil Absolute 0.2 0.0 - 0.7 K/uL 11/12/2024 11:12 AM CDT [facility]) Basophil Absolute 0.0 0.0 - 0.2 K/uL 11/12/2024 11:12 AM CDT [facility]) Immature Granulocytes % 0.2 0.0 - 0.5 % 11/12/2024 11:12 AM CDT [facility]) Immature Granulocytes Absolute 0.01 0.00 - 0.03 K/UL 11/12/2024 11:12 AM T [facility]) Blood BLOOD SPECIMEN / Unknown Line Draw / Unknown 11/12/2024 11:05 AM CDT 11/12/2024 11:05 AM CDT Asiya Morales ADVANCED MANUFACTURING ENGINEER-CABLE SPLICER ASSISTANT LAB - HEMATOLOGY ORDERA BLES Final Result [facility]) [address] [place] [address] * (ABNORMAL) COMPREHENSIVE METABOLIC PANEL (11/12/2024 11:05 AM CDT) Sodium 138 137 - 145 mmol/L 11/12/2024 11:41 AM CDT [facility]) Potassium 4.2 3.6 - 5.0 mmol/L 11/12/2024 11:41 AM [facility] ([facility]) Chloride 102 98 - 107 mmol/L 11/12/2024 11:41 AM [facility] ([facility]) Carbon Dioxide 25 21 - 31 mmol/L 11/12/2024 11:41 AM [facility] ([facility]) Glucose 115(H) 75 - 100 mg/dL 11/12/2024 11:41 AM [facility] ([facility]) BUN 15 7 - 17 mg/dL 11/12/2024 11:41 AM [facility] ([facility]) Creatinine 0.80 0.66 - 1.25 mg/dL 11/12/2024 11:41 AM [facility] ([facility]) eGFR 95 >=60 ml/min/1.7 3*2 11/12/2024 11:41 AM [facility] ([facility]) Comment: Chronic kidney disease is defined as either the presence of kidney disease or a GFR of less than 60 ml/min/1.732 for 3 or more months and can be diagnosed without knowledge of its cause (NKF). Reference range in ml/min/1.732 For healthy adults > 60 Chronic Kidney Disease 15-60. GFR is not recommended for patients greater than 70 years. Reference ranges not available for patients under 18 yrs. Test will not be performed. BUN/Creatinine Ratio 18.6 6.0 - 26.0 11/12/2024 11:41 AM [facility] ([facility]) Calcium 9.9 8.4 - 10.7 mg/dL 11/12/2024 11:41 AM [facility] ([facility]) Protein Total 7.6 6.3 - 8.2 g/dL 11/12/2024 11:41 AM [facility] ([facility]) Albumin 4.4 3.9 - 5.0 g/dL 11/12/2024 11:41 AM [facility] ([facility]) Albumin/Globulin Ratio 1.4 1.1 - 2.2 g/dL 11/12/2024 11:41 AM [facility] ([facility]) Bilirubin Total 0.5 0.2 - 1.3 mg/dL 11/12/2024 11:41 AM CDT [facility]) Alkaline Phosphatase 43 38 - 126 U/L 11/12/2024 11:41 AM CDT [facility]) AST 21 14 - 50 U/L 11/12/2024 11:41 AM CDT [facility]) ALT 18 9 - 52 U/L 11/12/2024 11:41 AM CDT [facility]) Blood BLOOD SPECIMEN / Unknown Line Draw / Unknown 11/12/2024 11:05 AM CDT 11/12/2024 11:05 AM CDT Asiya Morales APRN-CABLE SPLICER ASSISTANT LAB - CHEMISTRY ORDERAB LES Final Result Performing Organization Address [facility]/ZIP Co de Phone Number [facility]) [address] [place] [address] * (ABNORMAL) LACTIC ACID BLOOD (11/12/2024 11:05 AM CDT) Pathologist [facility] Lactic Acid 2.2(HH) 0.7 - 2.1 mmol/L 11/12/2024 11:30 AM CDT [facility]) Blood BLOOD SPECIMEN / Unknown Line Draw / Unknown 11/12/2024 11:05 AM CDT 11/12/2024 11:05 AM CDT Asiya Morales APRN-CABLE SPLICER ASSISTANT LAB - CHEMISTRY ORDERAB LES Final Result [facility]) [address] [place] [address] from Last 3 Months Insurance MEDICARE [facility] JANEY FELIX [id number] Care Teams Tube Lancer Relationship Specialty Start Date End Date Unknown, Provider PCP - General 11/12/24
--- OUTSIDE RECORDS SUMMARY | 2024-11-16 09:29 | XMS_ITS | Continuity of Care Document ---
Author Organization [facility] Address [address] [place] [address] Phone Care Team Providers Care Cap Parts Cutter Name Role Phone Nahum Jade MD, MD [...] Providers Copied on Encounter Work/medical disability examination ON LICENSE OF [facility], [address] [place], [place] [address], [id number], tel:[phone] [facility] JOINT PAIN-L/LEG Kalie Sidhu. [address], [place], [place], [id number], [place]. tel:[phone] Family History Family Member Type Diagnosis Age At Onset No Information Payers Payer name Insurance type Covered libertarian ID Authoriza john(s) [facility] [id number] Social History Type Description Quantity Date Captured [...]
--- OUTSIDE RECORDS SUMMARY | 2024-11-16 09:29 | XMS_ITS | Patient Health Record ---
Author Organization [facility] Address [address] [place], [place] [id number] Care Team Providers Care Market Gardener Name Role Phone IVELISSE GUERRERO Unavailable [phone] Rufino Cordon Unavailable Unavailable Allergies Allergen (clinical drug ingredient) Drug/Non Drug Allergy documented on EMR Reaction Allergy Type Onset Date Status atorvastatin Atorvastatin Unknown Drug Allergy A ctive bupropion buPROPion Unknown Drug Allergy Active cyclobenzaprine Cyclobenzaprine Unknown Drug Allergy 01/22 active Reason For Referral No Information Medications Medication SIG (Take, Route, Frequency, Duration) Notes Start Date End Date Status Montelukast Sodium 10 MG TAKE 1 TABLET BY MOUTH EVERY DAY Oral; Duration: 90 Days Active ALPRAZolam 0.5 MG Oral; Duration: 10 Days Active Rosuvastatin Calcium 20 MG TAKE 1 TABLET BY MOUTH EVERY DAY Oral; Duration: 90 Days Active metFORMIN HCl 1000 MG TAKE 1 TABLET BY MOUTH TWICE DAILY Oral; Duration: 90 Days Active LORazepam 0.5 MG Oral Tablet ORAL lorazepam 0.5 MG Oral TabletOriginal Medicationlorazepam 0.5 MG Oral Tablet *Reorder from Prifloat for eRx and Interaction Alerts* 01/22/2018 Active Escitalopram Oxalate 10 MG TAKE 1 TABLET BY MOUTH EVERY DAY Oral; Duration: 90 Days Active Rosuvastatin Calcium 10 MG Oral Tablet ORAL rosuvastatin calcium 10 MG Oral TabletOriginal Medicationrosuvastatin calcium 10 MG Oral Tablet *Reorder from Prifloat for eRx and Interaction Alerts* 01/22/2018 Active Tamsulosin HCl 0.4 MG TAKE 1 CAPSULE BY MOUTH EVERY DAY Oral; Duration: 90 Days Active Ipratropium [place] 0.03 % USE 2 SPRAYS IN EACH NOSTRIL TWICE DAILY Nasal; Duration: 43 Days Active Ozempic (1 MG/DOSE) 4 MG/3ML Subcutaneous; Duration: 28 Days Active omeprazole 40 MG Delayed Release Oral Capsule ORAL omeprazole 40 MG Delayed Release Oral CapsuleOriginal Medicationomeprazole 40 MG Delayed Release Oral Capsule *Reorder from Prifloat for eRx and Interaction Alerts* 01/22/2018 Active aspirin 81 MG Delayed Release Oral Tablet ORAL aspirin 81 MG Delayed Release Oral TabletOriginal Medicationaspirin 81 MG Delayed Release Oral Tablet *Reorder from Prifloat for eRx and Interaction Alerts* 01/22/2018 Active Immunizations Vaccine Route Administration Date Status Comme nts Influenza, high dose seasonal Unknown 02/09/2023 Admini stered Vital Signs Height-cm 182.88 cm 10/07/2024 Weight-kg 129.73 kg 10/07/2024 Height 72.00 in 10/07/2024 Weight 286 lbs 10/07/2024 BMI 38.78 kg/m2 10/07/2024 Encounters Encounter Location Date Provider Diagnosis [facility] [address] [place] [id number] 12/25/2023 IVELISSE SNOOK Tinea unguium B35.1 ; Pain in right toe(s) M79.674 ; Pain in left toe(s) M79.675 ; Atherosclerosis of [place] arteries of extremities with intermittent claudication, bilateral legs I70.213 and Type 2 diabetes mellitus with other circulatory complications E11.59 [facility] [address] [place] [id number] 02/26/2024 IVELISSE SNOOK Tinea unguium B35.1 ; Pain in right toe(s) M79.674 ; Pain in left toe(s) M79.675 ; Atherosclerosis of [place] arteries of extremities with intermittent claudication, bilateral legs I70.213 and Type 2 diabetes mellitus with other circulatory complications E11.59 [facility] [address] [place], [place] [id number] 05/27/2024 IVELISSE SNOOK Tinea unguium B35.1 ; Pain in right toe(s) M79.674 ; Pain in left toe(s) M79.675 ; Atherosclerosis of [place] arteries of extremities with intermittent claudication, bilateral legs I70.213 and Type 2 diabetes mellitus with other circulatory complications E11.[address] [id number] 08/01/2024 IVELISSE GUERRERO Tinea unguium B35.1 ; Pain in right toe(s) M79.674 ; Pain in left toe(s) M79.675 ; Atherosclerosis of [place] arteries of extremities with intermittent claudication, bilateral legs I70.213 and Type 2 diabetes mellitus with other circulatory complications E11.59 [facility] [address] [place] [id number] 10/07/2024 IVELISSE KEARNSK Tinea unguium B35.1 ; Pain in right toe(s) M79.674 ; Pain in left toe(s) M79.675 ; Atherosclerosis of [place] arteries of extremities with intermittent claudication, bilateral [...] any subungual debris and necrotic tissue removed 08/01/2024 Tinea unguium (ICD-10 - B35.1) NAIL DEBRIDEMENT: Nails 1-5 Bilateral were debrided extensively with nail nippers and emery board, reducing length and girth to pink healthy tissue with any subungual debris and necrotic tissue removed 10/07/2024 Tinea unguium (ICD-10 - B35.1) NAIL DEBRIDEMENT: Nails 1-5 Bilateral were debrided extensively with nail nippers and emery board, reducing length and girth to pink healthy tissue with any subungual debris and necrotic tissue removed 08/01/2024 Pain in right toe(s) (ICD-10 - M79.674) 10/07/2024 Pain in right toe(s) (ICD-10 - M79.674) 05/27/2024 Pain in right toe(s) (ICD-10 - M79.674) 02/26/2024 Pain in right toe(s) (ICD-10 - M79.674) 12/25/2023 Pain in left toe(s) (ICD-10 - M79.675) 02/26/2024 Pain in left toe(s) (ICD-10 - M79.675) 12/25/2023 Atherosclerosis of [place] arteries of extremities with intermittent claudication, bilateral legs (ICD-10 - I70.213) 05/27/2024 Pain in left toe(s) (ICD-10 - M79.675) 10/07/2024 Pain in left toe(s) (ICD-10 - M79.675) 08/01/2024 Pain in left toe(s) (ICD-10 - M79.675) 05/27/2024 Atherosclerosis of [place] arteries of extremities with intermittent claudication, bilateral legs (ICD-10 - I70.213) 08/01/2024 Atherosclerosis of [place] arteries of extremities with intermittent claudication, bilateral legs (ICD-10 - I70.213) 10/07/2024 Atherosclerosis of [place] arteries of extremities with intermittent claudication, bilateral legs (ICD-10 - I70.213) 02/26/2024 Atherosclerosis of [place] arteries of extremities with intermittent claudication, bilateral [...] as well as the Amputation Prevention Guide. 08/01/2024 Type 2 diabetes mellitus with other circulatory complications (ICD-10 - E11.59) Diabetic Foot Care: The patient was educated on diabetes and the lower extremity. The patient was instructed to check his feet daily to report any problems or signs of infection immediately. The patient was provided written information on Diabetic Foot Care as well as the Amputation Prevention Guide. 10/07/2024 Type 2 diabetes mellitus with other circulatory [...] Plan Of Treatment Next Appt Details Provider Name:IVELISSE GUERRERO, 09:00:00 AM, [address], [address], [id number], Insurance Providers Payer Name Payer Address Payer Phone Subscriber Number Group Number Insured Name Patient Relationship to Insured Coverage Start Date Coverage End Date Medicare Part B [facility] [address] [place] [phone] [id number] RICKY CHAVEZ Self - patient is the insured cart[employer] Ins [place] [address] [place] [address] [id number] RICKY CHAVEZ Self - patient is the insured Medical (General) History Surgical History Surgery Date(Month/Year) appendectomy cheek nasal surgery Wrist Surgery varicose vein stripping replacement
[2024-11-16 11:01] LABS: Prostate Specific Antigen 5.7 ng/mL (< OR = 4.0)
== END 2024-11-16 09:25 | disposition home or self-care (01) ==
LOC: CHSLAB 09:26
PROVIDERS: PCP Family Medicine; Visit Provider Urology
DX: C61 Malignant neoplasm of prostate (principal); Z12.5 Encounter for screening for malignant neoplasm of prostate
CPT/HCPCS: 36415; 84153; G0103

== ENCOUNTER 2024-12-31 09:18 | Outpatient (CLI) | payer MEDICARE, SELFPAY ==
--- OUTSIDE RECORDS SUMMARY | 2011-12-13 10:10 | XMS_ITS | Continuity of Care Document ---
Author Organization [facility] Address [address] [place] [address] Phone Care Team Providers Care Group Sales Manager Name Role Phone Nahum Jade MD, MD Unavailable Unavaila ble Allergies, Adverse Reactions, Alerts Substance Reaction Status Criticality No Known Drug Allergies Active No I nformation No Known Allergies Active No Inform ation Procedures Procedure Date Work/medical disability examination [employer] Prolonged serv, w/o contact, 1st hr Advance Directives Directive Yes / No Effective Date File Name Resuscitation Not Answered N/A N/A Life Support Not Answered N/A N/A Intubation Not Answered N/A N/A Antibiotics Not Answered N/A N/A IV Fluid Support Not Answered N/A N/A Tube Feed Not Answered N/A N/A Other Directive N/A N/A WARNING:The information contained in this section is historical and is provided for information only and does not constitute a legal document or any assurance that the information is still accurate. Please verify the information with the catalan of the legal document before using it for clinical purposes. Encounters Encounter Description Practice Location Reason(s) For Visit Diagnoses Date Provider Providers Copied on Encounter Work/medical disability examination [facility], [address] [place], [place] [address], [id number], tel:[phone] [facility] Kalie Sidhu. [address], [place], [place], [id number], [place]. tel:[phone] Family History Family Member Type Diagnosis Age At Onset No Information Payers Payer name Insurance type Covered green party ID Authoriza john(s) [facility] [id number] Social History Type Description Quantity Date Captured Comments Alcohol Use Details Unknown Caffeine Use Details Unknown Tobacco Use Status No Information Smoking Status Never smoker Sex Male Vital Signs Date / Time: Height Weight BMI Pulse Rate Blood Pressure Temperature Respiratory Rate Body Surface Area Head Circumference Head Circ. Percentile Wt./Ronnie. Percentile BMI percentile Pulse Ox Inhaled Ox 2:32 PM 72.00 in 290.00 lbs 39.3 3 kg/m eter (2) 175/114 mm[Hg] Chief Complaint And Reason For Visit No Information Reason For Referral Reason For Referral No Information History Of Present Illness Encounter Date Complaint History Of Prese nt Illness No Information Functional Status Date Functional Assessmen t No Information Instructions Date Instruction Additional Infor mation No Information Assessments Type Assessment Date No Information Patient Care Teams Name Effective Dates (start - stop) Status Members No Information
--- OUTSIDE RECORDS SUMMARY | 2024-12-31 09:35 | XMS_ITS | Clinical Summary ---
Author Organization [facility] Address [address] [place] [address] Care Team Providers Care Disability Representative Name Role Phone Rufino Cordon DO Primary Care Provider [phone] Allergies Active Allergy Reactions Criticality Noted Date [...] Comments Blood Pressure 108/71 03/16/2023 2:00 PM PEDIATRIC ORTHODONTIST Pulse 81 03/16/2023 2:30 PM PEDIATRIC ORTHODONTIST Temperature 37 C (98.6 F) 03/16/2023 1:35 PM PEDIATRIC ORTHODONTIST Respiratory Rate 18 03/16/2023 2:30 PM PEDIATRIC ORTHODONTIST Oxygen Saturation 96% 03/16/2023 2:30 PM PEDIATRIC ORTHODONTIST Inhaled Oxygen Concentration - - Weight 103.9 kg (229 lb) 03/08/2023 2:19 PM PEDIATRIC ORTHODONTIST Height 180.3 cm (5' 11) 03/08/2023 2:19 PM PEDIATRIC ORTHODONTIST Body Mass Index 31.94 03/08/2023 2:19 PM PEDIATRIC ORTHODONTIST Plan of Treatment Health Maintenance Due Date Last Done Comments Colorectal Cancer Screening Colonoscopy (10 Years) 1952 Hepatitis C 1970 DTaP, Tdap and Td Vaccines ( 1 - Tdap) 1971 Pneumococcal Vaccine: 50+ Ye ars (1 of 2 - PCV) 1971 Zoster Vaccines (1 of 2) 2002 Annual Medicare Wellness Visit 2017 COVID-19 Vaccine ( - 2023-2 5 season) 2023 RSV Immunization or 60+ Years (1 - [...] this topic Medical Devices Implanted Type Area Cosmetology Professor Device Identifier Shelf Expiration Date Model / Serial / Lot Inspire Stimulation Lead For Obstructive Sleep Apnea Implanted:Qty: 1 on 03/16/2023 by Brandy Villa MD at [facility] Right: Neck [id number] 10/31/2025 [id number] / [id number] / N/A Inspire Respiratory Sensing Lead For Obstructive Sleep Apnea Implanted:Qty: 1 on 03/16/2023 by Brandy Villa MD at [facility] Right: Chest NA 02/04/2026 4340 / [id number] / NA Inspire Implantable Pulse Generator (Ipg) Implanted:Qty: 1 on 03/16/2023 by Brandy Villa MD at [facility] Right: Chest [id number] 02/03/2024 3028 / [id number] / NA Insurance MEDICARE [facility] Care Teams Disability Representative Relationship Specialty Start Date End Date Rufino Cordon DO [address] [place] [address] PCP - General FAMILY PRACTICE 03/16/23
--- OUTSIDE RECORDS SUMMARY | 2024-12-31 09:35 | XMS_ITS | Encounter Summary ---
Author Organization [facility] Address [address] [place] [address] Care Team Providers Care Title One Kindergarten Teacher Name Role Phone Rufino Cordon DO Primary Care Provider [phone] Encounter Details Date Type Department Care Team (Late st Contact Info) Description 10/06/[address] [facility] [address] [place], [place] [id number] , Generic Conversion, Social History Tobacco Use [...] on filedocumented in this encounter Care Teams Title One Kindergarten Teacher Relationship Specialty Start Date End Date Rufino Cordon DO [address] [place] [address] PCP - General FAMILY PRACTICE 03/16/23 documented as of this encounter
--- OUTSIDE RECORDS SUMMARY | 2024-12-31 09:35 | XMS_ITS | Clinical Summary ---
Author Organization [facility] Address [address] [place] [address] Care Team Providers Care Assistant Real Estate Manager Name Role Phone Unknown, Provider Primary Care Provider Unavaila ble Source Comments [facility],non-owned Affiliates and Associated Physician Practices is amultiple site organization consisting of ambulatory clinics and hospital sitesin [place], [place], [place] and [place]. This disclosure is being madepursuant to the Care Everywhere program and may not contain all information available regarding this patient. Last updated 18.[facility] Allergies Active Allergy Reactions Criticality Noted Date [...] Active ipratropium (Atrovent) 0.03 % nasal spray [place] into each nostril 2 times daily Active Encounters Date Type Department Care Team Description 11/12/2024 10:55 AM CDT - 11/12/2024 2:07 PM CDT Emergency [facility] - Emergency Department [address] [place] [address] Asiya Morales APRN-MICAH Altered mental [...] 1:33 PM - Electronically signed by Munir Appleadrian Chiu M.D. GUILLERMINA: GUILLERMINA Report ID: [id number] Reading Location: [id number] [facility] 11/12/2024 1:33 PM CDT [address] [address] RADIOLOGY REPORT Patient Name: RICKY DAS Date [...] OTHER: No other significant abnormality. INTRACRANIAL VESSELS [place]: The anterior, middle, posterior cerebral arteries are all patent common noting type right DISHCLOTH FOLDER. No focal stenosis. No aneurysm. POSTERIOR CIRCULATION: [...] Procedure Note Munir Chiu MD - 11/12/2024 [place] [address] RADIOLOGY REPORT Patient Name: RICKY DAS Date [...] OTHER: No other significant abnormality. INTRACRANIAL VESSELS [place]: The anterior, middle, posterior cerebral arteries are all patent common noting type right DISHCLOTH FOLDER. No focal stenosis. No aneurysm. POSTERIOR CIRCULATION: [...] Munir Chiu M.D. GUILLERMINA: GUILLERMINA Report ID: [id number] Reading Location: [place] [address] Asiya Morales DIECAST MACHINE OPERATOR-PHOTOGRAPHER APPRENTICE LITHOGRAPHIC CT ORDERABLES Final R esult * URINALYSIS REFLEX MICROSCOPIC REFLEX CULTURE (11/12/2024 12:06 PM CDT) Color UA Yellow Yellow, Ekaterina 11/12/2024 12:43 PM CDT [facility] ([facility]) Clarity UA Clear Clear, Hazy 11/12/2024 12:43 PM CDT [facility] ([facility]) Specific [place] UA 1.015 1.000, 1.005, 1.010, 1.015, 1.020, 1.025 11/12/2024 12:43 PM CDT [facility] ([facility]) pH UA 7.5 5.0, 5.5, 6.0, 6.5, 7.0, 7.5, 8.0, Color Interference 11/12/2024 12:43 PM CDT [facility] ([facility]) Protein UA Negative Negative 11/12/2024 12:43 PM CDT [facility] ([facility]) Glucose UA Negative Negative, Color Interference 11/12/2024 12:43 PM CDT [facility] ([facility]) Ketone UA Negative Negative 11/12/2024 12:43 PM CDT [facility] ([facility]) Bilirubin UA Negative Negative 11/12/2024 12:43 PM CDT [facility] ([facility]) Blood UA Negative Negative 11/12/2024 12:43 PM CDT [facility] ([facility]) Leukocyte Esterase UA Negative Negative 11/12/2024 12:43 PM CDT [facility] ([facility]) Nitrite UA Negative Negative 11/12/2024 12:43 PM CDT [facility] ([facility]) Urobilinogen UA 0.2 0.2, 1.0 12:43 PM CDT [facility] ([facility]) Urine Microscopy 11/12/2024 12:43 PM T [facility] ([facility]) Urine URINE SPECIMEN OBTAINED BY CLEAN CATCH PROCEDURE / Unknown Collection / Unknown 11/12/2024 12:06 PM CDT 11/12/2024 12:10 PM CDT Asiya Morales APRN-PHOTOGRAPHER APPRENTICE LITHOGRAPHIC LAB - URINALYSIS ORDERA BLES Final Result [facility] ([facility]) [address] [place] [address] * BLOOD CULT RST RFLXED (11/12/2024 11:48 AM CDT) Only the most recent of2 resultswithin the time period is included. Result 1 Comment 11/18/2024 1:07 PM CDT [facility] ([facility]) Comment:No aerobic or anaero bic growth in five days. Blood PERIPHERAL BLOOD / Unknown Lab Venipuncture / Unknown 11/12/2024 11:48 AM CDT 11/12/2024 11:51 AM CDT Narrative [facility] ([facility]) - 11/18/2024 1:07 PM CDT Performed at: [address] [place] [id number] Environmental Science Program Director: Salvador Merrill PhD, Phone: [phone] Asiya Morales APRN-PHOTOGRAPHER APPRENTICE LITHOGRAPHIC LAB - MICROBIOLOGY ORDE RABLES Final Result Performing Organization Address [facility] Co de Phone Number [facility] ([facility]) [address] [place] [address] * CULTURE BLOOD (11/12/2024 11:48 AM CDT) Only the most recent of2 resultswithin the time period is included. [facility] Blood Culture Routine Final report 11/18/2024 1:07 PM CDT [facility] ([facility]) Blood PERIPHERAL BLOOD / Unknown Lab Venipuncture / Unknown 11/12/2024 11:48 AM CDT 11/12/2024 11:51 AM CDT Narrative [facility] ([facility]) - 11/18/2024 1:07 PM CDT Performed at: [address] [id number] Environmental Science Program Director: Salvador Merrill PhD, Phone: [phone] Asiya Morales DIECAST MACHINE OPERATOR-PHOTOGRAPHER APPRENTICE LITHOGRAPHIC LAB - MICROBIOLOGY NICOJayesh RODRIGUEZNIKO Final Result [facility] ([facility]) [address] [place] [id number] * XR CHEST 1VW PORTABLE (11/12/2024 11:29 [...] Maida Hall D.O. PS: PS Report ID: [id number] Reading Location: [id number] [facility] 11/12/2024 11:[place] [address] RADIOLOGY REPORT Patient Name: RICKY DAS Date [...] unremarkable. Procedure Note Maida Hall, - 11/12/2024 [place] [address] RADIOLOGY REPORT Patient Name: RICKY DAS Date [...] Maida Hall D.O. PS: PS Report ID: [id number] Reading Location: [id number] Asiya Morales DIECAST MACHINE OPERATOR-PHOTOGRAPHER APPRENTICE LITHOGRAPHIC DIAGNOSTIC IMAGING ORDE ONESIMO Final Result * [...] Jim Turcios M.D. CH: COREEN Report ID: [id number] Reading Location: [address] 11/12/2024 11:35 [place] [address] RADIOLOGY REPORT Patient Name: RICKY DAS Date of Service:11/12/2024 Date of :1950 Age:74 Sex:M Requesting Shawna MORALES Examination:CT HEAD WO CONTRAST EXAM DESCRIPTION: [...] Note Jim Turcios Jr., MD - 11/12/2024 [place] [address] RADIOLOGY REPORT Patient Name: RICKY DAS Date of Service:11/12/2024 Date of :1950 Age:74 Sex:M [facility] Examination:CT HEAD WO CONTRAST EXAM DESCRIPTION: [...] Electronically signed by Jim Turcios M.D. CH: Report ID: [id number] Reading Location: [id number] Asiya Morales DIECAST MACHINE OPERATORCOLLIS [facility] ORDERABLES Final R esult * EKG 12-Lead (11/12/2024 11:07 AM CDT) Asiya Morales DIECAST MACHINE OPERATORVA [facility] ECG ORDERABLES Final R esult [facility] * TROPONIN I (11/12/2024 11:05 AM CDT) Troponin I <0.012 0.000 - 0.034 ng/mL 11/12/2024 11:41 AM CDT [facility] ([facility]) Blood BLOOD SPECIMEN / Unknown Line Draw / Unknown 11/12/2024 11:05 AM CDT 11/12/2024 11:05 AM CDT Narrative [facility] ([facility]) - 11/12/2024 11:41 AM CDT AMI Diagnostic cut-off = 0.12ng/mL Values less thatn 0.035 represent the upper limit of normal at the 99th percentile. Values between 0.035 and 0.12 indicate the need for further evaluation. Asiya Morales APRN-PHOTOGRAPHER APPRENTICE LITHOGRAPHIC LAB - CHEMISTRY ORDERAB LES Final Result [facility] ([facility]) [address] [place] [address] * (ABNORMAL) PT-INR (11/12/2024 11:05 AM CDT) PT 9.8 9.2 - 11.0 sec 11/12/2024 11:32 AM CDT [facility] ([facility]) INR 0.94(L) 2 - 4 11/12/2024 11:32 AM CDT [facility] ([facility]) Blood BLOOD SPECIMEN / Unknown Line Draw / Unknown 11/12/2024 11:05 AM CDT 11/12/2024 11:04 AM CDT Narrative [facility] ([facility]) - 11/12/2024 11:32 AM CDT Therapeutic Ranges: Prophylaxis, treatment of DVT, PE......... 2.0-3.0 Tissue Heart Valves ..................................... 2.0-3.0 Acute OR ...................................... 2.5-3.5 Valvular Heart Disease ..........................2.5-3.5 Atrial Fibrillation ............................2.5-3.5 Mechanical Heart Vlave .............2.5-3.5 For more Informations see CHEST Vol 119/1 Supp (2000) us Asiya L Varel DIECAST MACHINE OPERATOR-PHOTOGRAPHER APPRENTICE LITHOGRAPHIC LAB - COAGULATION ORDER JOSE Final Result [facility] ([facility]) [address] [place] [address] * (ABNORMAL) CBC W AUTO DIFFERENTIAL (11/12/2024 11:05 AM CDT) WBC 5.7 4.0 - 10.0 K/uL 11/12/2024 11:12 AM T [facility] ([facility]) RBC 5.1 4.2 - 5.7 M/ul 11/12/2024 11:12 AM T [facility] ([facility]) Hemoglobin 14.5 13.0 - 18.0 g/dL 11/12/2024 11:12 AM T [facility] ([facility]) Hematocrit 44.4 38.0 - 51.0 % 11/12/2024 11:12 AM T [facility] ([facility]) MCV 87.1 82.0 - 98.0 fL 11/12/2024 11:12 AM T [facility] ([facility]) MCH 28.4 27.0 - 34.0 pg 11/12/2024 11:12 AM T [facility] ([facility]) MCHC 32.7 32.0 - 35.0 g/dL 11/12/2024 11:12 AM T [facility] ([facility]) RDW-CV 11.9 11.4 - 14.6 % 11/12/2024 11:12 AM T [facility] ([facility]) Platelet Count 183 120 - 410 K/uL 11/12/2024 11:12 AM T [facility] ([facility]) MPV 9.3 5.2 - 12.8 fL 11/12/2024 11:12 AM T [facility] ([facility]) Neutrophils % 67.9 25.0 - 78.0 % 11/12/2024 11:12 AM T [facility] ([facility]) Lymphocytes % 21.7 10.0 - 50.0 % 11/12/2024 11:12 AM T [facility] ([facility]) Monocytes % 6.5 0.0 - 11.0 % 11/12/2024 11:12 AM CDT [facility] ([facility]) Eosinophils % 3.2(H) 0.0 - 3.0 % 11/12/2024 11:12 AM CDT [facility] ([facility]) Basophils % 0.5 0.0 - 1.5 % 11/12/2024 11:12 AM CDT [facility] ([facility]) Neutrophil Absolute 3.9 2.0 - 6.9 K/uL 11/12/2024 11:12 AM CDT [facility] ([facility]) Lymphocyte Absolute 1.2 0.6 - 4.6 K/uL 11/12/2024 11:12 AM CDT [facility] ([facility]) Monocyte Absolute 0.4 0.0 - 0.9 K/uL 11/12/2024 11:12 AM CDT [facility] ([facility]) Eosinophil Absolute 0.2 0.0 - 0.7 K/uL 11/12/2024 11:12 AM CDT [facility] ([facility]) Basophil Absolute 0.0 0.0 - 0.2 K/uL 11/12/2024 11:12 AM T [facility] ([facility]) Immature Granulocytes % 0.2 0.0 - 0.5 % 11/12/2024 11:12 AM CDT [facility] ([facility]) Immature Granulocytes Absolute 0.01 0.00 - 0.03 K/UL 11/12/2024 11:12 AM T [facility] ([facility]) Blood BLOOD SPECIMEN / Unknown Line Draw / Unknown 11/12/2024 11:05 AM CDT 11/12/2024 11:05 AM CDT us Asiya Morales DIECAST MACHINE OPERATOR-PHOTOGRAPHER APPRENTICE LITHOGRAPHIC LAB - HEMATOLOGY ORDERA BLES Final Result [facility] ([facility]) [address] [place] [address] * (ABNORMAL) COMPREHENSIVE METABOLIC PANEL (11/12/2024 11:05 AM CDT) [facility] Sodium 138 137 - 145 mmol/L 11/12/2024 11:41 AM [facility] ([facility]) Potassium 4.2 3.6 - 5.0 mmol/L 11/12/2024 11:41 AM [facility] ([facility]) Chloride 102 98 - 107 mmol/L 11/12/2024 11:41 AM [facility] ([facility]) Carbon Dioxide 25 21 - 31 mmol/L 11/12/2024 11:41 AM [facility] ([facility]) Glucose 115(H) 75 - 100 mg/dL 11/12/2024 11:41 AM [facility] ([facility]) BUN 15 7 - 17 mg/dL 11/12/2024 11:41 AM [facility] ([facility]) Creatinine 0.80 0.66 - 1.25 mg/dL 11/12/2024 11:41 AM [facility] ([facility]) eGFR 95 >=60 ml/min/1.7 3*2 11/12/2024 11:41 AM [facility] ([facility]) Comment: Chronic kidney disease is defined as [...] 18.6 6.0 - 26.0 11/12/2024 11:41 AM [facility] ([facility]) Calcium 9.9 8.4 - 10.7 mg/dL 11/12/2024 11:41 AM [facility] ([facility]) Protein Total 7.6 6.3 - 8.2 g/dL 11/12/2024 11:41 AM [facility] ([facility]) Albumin 4.4 3.9 - 5.0 g/dL 11/12/2024 11:41 AM [facility] ([facility]) Albumin/Globulin Ratio 1.4 1.1 - 2.2 g/dL 11/12/2024 11:41 AM CDT [facility] ([facility]) Bilirubin Total 0.5 0.2 - 1.3 mg/dL 11/12/2024 11:41 AM CDT [facility] ([facility]) Alkaline Phosphatase 43 38 - 126 U/L 11/12/2024 11:41 AM CDT [facility] ([facility]) AST 21 14 - 50 U/L 11/12/2024 11:41 AM CDT [facility] ([facility]) ALT 18 9 - 52 U/L 11/12/2024 11:41 AM CDT [facility] ([facility]) Blood BLOOD SPECIMEN / Unknown Line Draw / Unknown 11/12/2024 11:05 AM CDT 11/12/2024 11:05 AM CDT Asiya Morales DIECAST MACHINE OPERATOR-PHOTOGRAPHER APPRENTICE LITHOGRAPHIC LAB - CHEMISTRY ORDERAB LES Final Result Performing Organization Address [facility] Co de Phone Number [facility] ([facility]) [address] [place] [address] * (ABNORMAL) LACTIC ACID BLOOD (11/12/2024 11:05 AM CDT) [facility] Lactic Acid 2.2(HH) 0.7 - 2.1 mmol/L 11/12/2024 11:30 AM CDT [facility] ([facility]) Blood BLOOD SPECIMEN / Unknown Line Draw / Unknown 11/12/2024 11:05 AM CDT 11/12/2024 11:05 AM CDT Asiya Morales DIECAST MACHINE OPERATOR-PHOTOGRAPHER APPRENTICE LITHOGRAPHIC LAB - CHEMISTRY ORDERAB LES Final Result Performing Organization Address [facility] Co de Phone Number [facility] ([facility]) [address] [place] [phone] from Last 3 Months Insurance MEDICARE [facility] [place] [id number] Care Teams Assistant Real Estate Manager Relationship Specialty Start Date End Date Unknown, Provider PCP - General 11/12/24
[2024-12-31 10:44] LABS: Prostate Specific Antigen 6.0 ng/mL (< OR = 4.0)
== END 2024-12-31 09:19 | disposition home or self-care (01) ==
LOC: CHSLAB 09:19
PROVIDERS: PCP Family Medicine; Visit Provider Urology
DX: C61 Malignant neoplasm of prostate (principal)
CPT/HCPCS: 36415; 84153

== ENCOUNTER 2025-03-31 10:51 | Outpatient (CLI) | payer MEDICARE, SELFPAY ==
[2025-03-31 12:17] LABS: Prostate Specific Antigen 6.0 ng/mL (< OR = 4.0)
--- OUTSIDE RECORDS SUMMARY | 2025-03-31 12:27 | XMS_ITS | Clinical Summary ---
Author Organization [facility] Address [address] [place] [address] Care Team Providers Care Bass String Winder Name Role Phone Rufino Cordon DO Primary Care Provider [phone] Allergies Active Allergy Reactions Criticality Noted Date [...] Comments Blood Pressure 108/71 03/16/2023 2:00 PM YOGA COORDINATOR Pulse 81 03/16/2023 2:30 PM YOGA COORDINATOR Temperature 37 C (98.6 F) 03/16/2023 1:35 PM YOGA COORDINATOR Respiratory Rate 18 03/16/2023 2:30 PM YOGA COORDINATOR Oxygen Saturation 96% 03/16/2023 2:30 PM YOGA COORDINATOR Inhaled Oxygen Concentration - - Weight 103.9 kg (229 lb) 03/08/2023 2:19 PM YOGA COORDINATOR Height 180.3 cm (5' 11) 03/08/2023 2:19 PM YOGA COORDINATOR Body Mass Index 31.94 03/08/2023 2:19 PM YOGA COORDINATOR Plan of Treatment Health Maintenance Due Date Last Done Comments Colorectal Cancer Screening Colonoscopy (10 Years) 1950 Hepatitis C 1970 DTaP, Tdap and Td Vaccines ( 1 - Tdap) 1971 Pneumococcal Vaccine: 50+ Ye ars (1 of 2 - PCV) 1971 Zoster Vaccines (1 of 2) 2002 Annual Medicare Wellness Visit 2017 COVID-19 Vaccine ( - 2024-2 6 season) 2024 Influenza Adult (#1) 2025 RSV Immunization or 60+ Years (1 - 1-dose 75+ series) 2027 Hepatitis A Vaccines Aged Out No long er eligible based on patient's age to complete this topic Meningococcal B Vaccine Aged Out No l onger eligible based on patient's age to complete this topic Meningococcal Vaccine Aged Out No dago tobi eligible based on patient's age to complete this topic RSV Immunizations Under 20 Months Aged Out No longer eligible based on patient's age to complete this topic Medical Devices Implanted Type Area Inspector Final Assembly Conveyor Line Device Identifier Shelf Expiration Date Model / Serial / Lot Inspire Stimulation Lead For Obstructive Sleep Apnea Implanted:Qty: 1 on 03/16/2023 by Brandy Villa MD at [facility] Right: Neck [id number] 10/31/2025 [id number] 900-013-00 1 / [id number] / N/A Inspire Respiratory Sensing Lead For Obstructive Sleep Apnea Implanted:Qty: 1 on 03/16/2023 by Brandy Villa MD at [facility] Right: Chest NA 02/04/2026 [id number] / [id number] / NA Inspire Implantable Pulse Generator (Ipg) Implanted:Qty: 1 on 03/16/2023 by Brandy Villa MD at [facility] Right: Chest [id number] 02/03/2024 [id number] / [id number] / NA Insurance MEDICARE [facility] Care Teams Bass String Winder Relationship Specialty Start Date End Date Rufino Cordon DO [address] [place] [address] PCP - General FAMILY PRACTICE 03/16/23
--- OUTSIDE RECORDS SUMMARY | 2025-03-31 12:27 | XMS_ITS | Encounter Summary ---
Author Organization [facility] Address [address] [place] [address] Care Team Providers Care Switchman Name Role Phone Rufino Cordon DO Primary Care Provider [phone] Encounter Details Date Type Department Care Team (Late st Contact Info) Description 10/06/[address] [facility] [address], [place] [address] , Generic Conversion, Social History Tobacco Use [...] on filedocumented in this encounter Care Teams Switchman Relationship Specialty Start Date End Date Rufino Cordon DO [address] [place] [address] PCP - General FAMILY PRACTICE 03/16/23 documented as of this encounter
--- OUTSIDE RECORDS SUMMARY | 2025-03-31 12:27 | XMS_ITS | Clinical Summary ---
Author Organization [facility] [employer] Address [address] [place] [address] Care Team Providers Care Mannequin Decorator Name Role Phone Unknown, Provider Primary Care Provider Unavaila ble Source Comments [facility],non-owned Affiliates and Associated Physician Practices is amultiple site organization consisting of ambulatory clinics and hospital sitesin [place], [place], [place] and [place]. This disclosure is being madepursuant to the Care Everywhere program and may not contain all information available regarding this patient. Last updated 18.[facility] [employer] Allergies Active Allergy Reactions Criticality Noted Date [...] Active ipratropium (Atrovent) 0.03 % nasal spray [place] into each nostril 2 times daily Active Social History Tobacco Use Types Packs/Day Years [...] 2002 ZOSTER VACCINE (1 of 2) 2002 DEPRESSION SCREENING 05/01/2024 COVID-19 VACCINE (1 - 2024-2 6 season) 2024 INFLUENZA VACCINE (#1) 2024 COLOGUARD (AGES 45-75) [...] on patient's age to complete this topic Insurance MEDICARE [facility] [place] [address] Care Teams Mannequin Decorator Relationship Specialty Start Date End Date Unknown, Provider PCP - General 11/12/24
== END 2025-03-31 10:52 | disposition home or self-care (01) ==
LOC: CHSLAB 10:52
PROVIDERS: PCP Family Medicine; Visit Provider Urology
DX: C61 Malignant neoplasm of prostate (principal)
CPT/HCPCS: 36415; 84153